=== PATIENT | female | born 1950 ===

== ENCOUNTER 2017-05-07 00:52 | Emergency (ER) | payer MEDICARE, OTHER ==
[2017-05-07 00:52] VITALS: BMI 49.6
--- NOTE | 2017-05-07 01:55 | C.PDOC ---
History Of Present Illness Patient presents to the ED with complaints of abdominal pain and nausea beginning today and persisting all day. Patient notes a history of H. Pylori and denies any fever or vomiting. Time Seen by Provider: 05/07/17 01:54 Chief Complaint (Nursing): Abdominal Pain History Per: Patient History/Exam Limitations: no limitations Onset/Duration Of Symptoms: Hrs Current Symptoms Are (Timing): Still Present Severity: Moderate Pain Scale Rating Of: 4 Location Of Pain/Discomfort: Diffuse Radiation Of Pain To:: None Quality Of Discomfort: "Pain" Associated Symptoms: Nausea. denies: Fever, Chills, Vomiting, Diarrhea Recent travel outside of the [place]: No Abnormal Vaginal Bleeding: No Past Medical History Reviewed: Historical Data, Nursing Documentation, Vital Signs Vital Signs: Last Vital Signs Temp 98.4 F 05/07/17 03:00 Pulse 69 05/07/17 03:00 Resp 20 05/07/17 03:00 BP 179/68 H 05/07/17 03:00 Pulse Ox 100 05/07/17 03:00 - Medical History PMH: Anxiety, Asthma, Back Problems (chronic), Depression, Diabetes, HTN, Hypercholesterolemia, Hyperlipidemia Surgical History: Cholecystectomy Family History: States: Unknown Family Hx - Social History Hx Tobacco Use: No Hx Alcohol Use: No Hx Substance Use: No - Immunization History Hx Tetanus Toxoid Vaccination: No Hx Influenza Vaccination: No Hx Pneumococcal Vaccination: No Review Of Systems Constitutional: Negative for: Fever, Chills Cardiovascular: Negative for: Chest Pain, Palpitations Respiratory: Negative for: Cough, Shortness of Breath Gastrointestinal: Positive for: Nausea, Abdominal Pain. Negative for: Vomiting , Diarrhea Physical Exam - Physical Exam Appears: Non-toxic, No Acute Distress, Other (Patient appears extremely anxious) Skin: Warm, Dry Head: Atraumatic Eye(s): bilateral: Normal Inspection Oral Mucosa: Moist Neck: Supple Chest: Symmetrical, No Deformity Cardiovascular: Rhythm Regular Respiratory: Normal Breath Sounds, No Rales, No Rhonchi, No Wheezing Gastrointestinal/Abdominal: Soft, Tenderness (mild abdominal tenderness ), Distention, No Guarding, No Rebound Extremity: Normal ROM, No Tenderness Neurological/Psych: Oriented x3 ED Course And Treatment - Laboratory Results Result Diagrams: 05/07/17 02:47 05/07/17 02:47 ECG: Interpreted By Me, Viewed By Me ECG Rhythm: Sinus Rhythm (95), Nonspecific Changes Pulse Ox Interpretation: Normal - Radiology CXR: Interpreted by Me, Viewed By Me Reevaluation Time: 06:23 Reassessment Condition: Improved Disposition Counseled Patient/Family Regarding: Studies Performed, Diagnosis, Need For Followup - Disposition Referrals: [facility] [Outside] [facility] [Outside] Disposition: HOME/ ROUTINE Disposition Time: 01:54 Condition: FAIR Prescriptions: Lorazepam [Ativan] 0.5 mg PO Q12H PRN #10 tab PRN Reason: Anxiety Instructions: Abdominal Pain (ED), Anxiety (ED) Print Language: TELUGU - Clinical Impression Clinical Impression: Abdominal pain, Anxiety - Scribe Statement The provider has reviewed the documentation as recorded by the Scribe Rosie Rodrigez All medical record entries made by the Abigailibe were at my direction and personally dictated by me. I have reviewed the chart and agree that the record accurately reflects my personal performance of the history, physical exam, medical decision making, and the department course for this patient. I have also personally directed, reviewed, and agree with the discharge instructions and disposition.
[2017-05-07] MEDS ORDERED: Sodium Chloride 0.9% 1,000 ML IV ONE (02:24)
[2017-05-07] MEDS ORDERED: Sodium Chloride 0.9% 1,000 ML ONE (02:40)
[2017-05-07 02:51] LABS: BASO # 0.1 K/uL (0.0-0.2); BASO % 0.7 % (0.0-2.0); EOS # 0.1 K/uL (0.0-0.7); EOS % 1.5 % (0.0-4.0); HEMOGLOBIN 16.2 g/dL (11.0-16.0); LYMPH # 3.1 K/uL (1.0-4.3); LYMPH % 30.3 % (20.0-40.0); MEAN CELL VOLUME 83.3 fL (81.0-99.0); MEAN CORPUSCULAR HEMOGLOBIN 28.5 pg (27.0-31.0); MEAN CORPUSCULAR HGB CONC 34.2 g/dL (33.0-37.0); MEAN PLATELET VOLUME 8.5 fL (7.2-11.7); MONO # 0.7 K/uL (0.0-0.8); NEUT # 6.1 K/uL (1.8-7.0); NEUT % 60.5 % (50.0-75.0); RBC 5.69 Mil/uL (3.80-5.20); RED CELL DISTRIBUTION WIDTH 13.5 % (11.5-14.5); WHITE BLOOD COUNT 10.1 K/uL (4.8-10.8)
[2017-05-07 02:59] LABS: ALBUMIN 4.1 g/dL (3.5-5.0)
[2017-05-07 03:01] VITALS: RESP 20; O2SAT 100
[2017-05-07 03:01] LABS: INR 1.1; PROTHROMBIN TIME 11.8 SECONDS (9.7-12.2)
[2017-05-07 03:02] LABS: ALB/GLOB RATIO 1.1 (1.0-2.1); ALT/SGPT 55 U/L (9-52); AST/SGOT 45 U/L (14-36); BLOOD UREA NITROGEN 12 mg/dL (7-17); GFR AFRICAN-AMERICAN > 60; GFR NON-AFRICAN AMERICAN > 60; LIPASE 68 U/L (23-300)
[2017-05-07 03:03] LABS: CALCIUM 8.9 mg/dl (8.6-10.4)
[2017-05-07] MEDS ORDERED: Iodixanol 320 MG/ML 100 ML BOTTLE IV ONE (04:54)
--- NOTE | 2017-05-07 06:03 | CT ---
EXAM: CT Abdomen and Pelvis With Intravenous Contrast CLINICAL HISTORY: 66 years old, female; Pain; Abdominal pain; Prior surgery; Surgery type: Colostomy; Patient HX: 12-13-15 TECHNIQUE: Axial computed tomography images of the abdomen and pelvis with intravenous contrast. This CT exam was performed using one or more of the following dose reduction techniques: automated exposure control, adjustment of the mA and/or kV according to patient size, and/or use of iterative reconstruction technique. Coronal and sagittal reformatted images were created and reviewed. CONTRAST: 100 mL of administered intravenously. COMPARISON: CT - ABD PELVIS IV CONTRAST ONLY 12/13/2015 5:33:43 PM FINDINGS: Lower thorax: No acute findings. ABDOMEN: Liver: Mildly enlarged. Fatty infiltration. Gallbladder and bile ducts: Cholecystectomy. No ductal dilation. Pancreas: No ductal dilation. No mass. Spleen: Few too small to characterize lesions. Mild splenomegaly, AP dimension. Adrenals: No mass. Kidneys and ureters: No mass. No hydronephrosis. Stomach and bowel: No definite mural thickening. No obstruction. Appendix: Normal caliber. No inflammation. PELVIS: Bladder: Unremarkable. Reproductive: Hysterectomy. ABDOMEN and PELVIS: Intraperitoneal space: No significant fluid collection. No free air. Bones/joints: Mild degenerative changes of spine. No acute fracture. Soft tissues: Diffuse eventration of anterior abdominal wall. Vasculature: Moderate atherosclerotic disease of aorta. Mild atherosclerotic disease of remaining arteries. No aneurysm. Lymph nodes: No pathologically enlarged lymph nodes. IMPRESSION: 1. No definite acute intraabdominal abnormality. 2. Incidental/non-acute findings are described above.
[2017-05-07 06:06] LABS: SQUAMOUS EPITHIAL < 1 /hpf (0-5); URINE BILIRUBIN NEGATIVE (NEGATIVE); URINE BLOOD NEGATIVE (NEGATIVE); URINE CLARITY Clear (Clear); URINE COLOR Colorless (YELLOW); URINE GLUCOSE (UA) 1+ mg/dL (Normal); URINE LEUKOCYTE ESTERASE NEG Leu/uL (Negative); URINE NITRATE NEGATIVE (NEGATIVE); URINE PROTEIN NEGATIVE (NEGATIVE); URINE UROBILINOGEN NORMAL mg/dL (0.2-1.0)
[2017-05-07 07:16] VITALS: BP 128/71; PULSE 67; TEMP 97.9
--- NOTE | 2017-05-08 21:29 | CARD ---
APPROVED REPORT EKG Measurement Heart [id number] <Conclusion> Normal sinus rhythm Normal ECG
== END 2017-05-07 07:15 | disposition home or self-care (01) ==
LOC: C.ER 00:52
DX: R10.9 Unspecified abdominal pain (principal); F41.9 Anxiety disorder, unspecified
CPT/HCPCS: 74177; 80053; 81001; 83690; 85025; 85610; 85730; 93005; 96361; 96374; 96375; 96376; 99285; C9113; J2270; J2405; J7040; Q9967

== ENCOUNTER 2017-10-18 10:06 | Emergency (ER) | payer MEDICARE, OTHER ==
[2017-10-18 10:07] VITALS: BMI 49.6
[2017-10-18 10:14] VITALS: O2SAT 98
[2017-10-18] MEDS ORDERED: Sodium Chloride 0.9% 1,000 ML IV ONE ×2 (10:55→12:41)
[2017-10-18 11:00] LABS: RBC URINE 1 /hpf (0-3); URINE BACTERIA RARE (<OCC); URINE BILIRUBIN NEGATIVE (NEGATIVE); URINE BLOOD NEGATIVE (NEGATIVE); URINE COLOR Yellow (YELLOW); URINE GLUCOSE (UA) 1+ mg/dL (Normal); URINE KETONE TRACE mg/dL (NEGATIVE); URINE LEUKOCYTE ESTERASE NEG Leu/uL (Negative); URINE PROTEIN NEGATIVE (NEGATIVE); URINE UROBILINOGEN NORMAL mg/dL (0.2-1.0); WBC URINE 3 /hpf (0-5)
[2017-10-18 11:08] LABS: BASO # 0.1 K/uL (0.0-0.2); BASO % 0.9 % (0.0-2.0); EOS # 0.1 K/uL (0.0-0.7); EOS % 0.7 % (0.0-4.0); HEMATOCRIT 47.6 % (34.0-47.0); LYMPH # 2.4 K/uL (1.0-4.3); MEAN CELL VOLUME 83.4 fL (81.0-99.0); MEAN CORPUSCULAR HEMOGLOBIN 28.7 pg (27.0-31.0); MEAN CORPUSCULAR HGB CONC 34.4 g/dL (33.0-37.0); MEAN PLATELET VOLUME 8.8 fL (7.2-11.7); MONO # 0.6 K/uL (0.0-0.8); MONO % 5.9 % (0.0-10.0); NRBC % 0.4 % (0.0-2.0); RED CELL DISTRIBUTION WIDTH 13.1 % (11.5-14.5); WHITE BLOOD COUNT 10.7 K/uL (4.8-10.8)
[2017-10-18] MEDS ORDERED: Sodium Chloride 0.9% 1,000 ML ONE (11:09)
[2017-10-18 11:26] LABS: ALB/GLOB RATIO 0.9 (1.0-2.1); ALKALINE PHOSPHATASE 148 U/L (38-126); ALT/SGPT 38 U/L (9-52); AST/SGOT 43 U/L (14-36); BLOOD UREA NITROGEN 18 mg/dL (7-17); CALCIUM 8.8 mg/dl (8.6-10.4); CARBON DIOXIDE 28 mmol/L (22-30); CHLORIDE 97 mmol/L (98-107); GFR AFRICAN-AMERICAN > 60; GLUCOSE,RANDOM 193 mg/dL (65-105); POTASSIUM 4.8 mmol/L (3.6-5.2); SODIUM 134 mmol/L (132-148); TOTAL PROTEIN 9.1 g/dL (6.3-8.3)
--- NOTE | 2017-10-18 11:38 | C.PDOC ---
History Of Present Illness 67 y/o female, with PMHx of HTN, Hypercholesterolemia, Diabetes, presents to ED c/o abdominal pain, nausea, and vomiting for the last 3 days. Denies diarrhea, fever, or urinary symptoms. Time Seen by Provider: 10/18/17 10:36 Chief Complaint (Nursing): Abdominal Pain History Per: Patient History/Exam Limitations: no limitations Current Symptoms Are (Timing): Still Present Location Of Pain/Discomfort: Diffuse Radiation Of Pain To:: None Quality Of Discomfort: "Pain" Associated Symptoms: Nausea, Vomiting Exacerbating Factors: None Alleviating Factors: None Recent travel outside of the [place]: No Additional History Per: Patient Abnormal Vaginal Bleeding: No Past Medical History Reviewed: Historical Data, Nursing Documentation, Vital Signs Vital Signs: Last Vital Signs Temp 98.1 F 10/18/17 14:07 Pulse 65 10/18/17 14:07 Resp 18 10/18/17 14:07 BP 174/76 H 10/18/17 14:07 Pulse Ox 98 10/18/17 14:07 - Medical History PMH: Anxiety, Asthma, Back Problems (chronic), Depression, Diabetes, Gastritis, HTN, Hypercholesterolemia, Hyperlipidemia Surgical History: Appendectomy, Cholecystectomy Family History: States: Unknown Family Hx - Social History Hx Tobacco Use: No Hx Alcohol Use: No Hx Substance Use: No - Immunization History Hx Tetanus Toxoid Vaccination: No Hx Influenza Vaccination: No Hx Pneumococcal Vaccination: No Review Of Systems Except As Marked, All Systems Reviewed And Found Negative. Constitutional: Negative for: Fever, Chills Gastrointestinal: Positive for: Nausea, Vomiting, Abdominal Pain. Negative for : Diarrhea, Constipation Genitourinary: Negative for: Dysuria, Frequency, Hematuria Musculoskeletal: Negative for: Back Pain Physical Exam - Physical Exam Appears: Non-toxic, No Acute Distress Skin: Normal Color, Warm, Dry Head: Atraumatic, Normacephalic Eye(s): bilateral: Normal Inspection Oral Mucosa: Moist Cardiovascular: Rhythm Regular, No Murmur Respiratory: Normal Breath Sounds, No Rales, No Rhonchi, No Wheezing Gastrointestinal/Abdominal: Soft, Tenderness (epigastric), No Guarding, No Rebound, Other (active vomiting) Back: No CVA Tenderness Extremity: Normal ROM Neurological/Psych: Oriented x3, Normal Speech Gait: Steady ED Course And Treatment - Laboratory Results Result Diagrams: 10/18/17 11:04 10/18/17 11:04 Lab Interpretation: No Acute Changes O2 Sat by Pulse Oximetry: 98 Pulse Ox Interpretation: Normal - CT Scan/US No standard instances Other Rad Studies (CT/US): Read By Radiologist, Radiology Report Reviewed CT/US Interpretation: FINDINGS: CHEST: Lungs: The lungs are well inflated and clear. Cardiovascular: Normal size heart. No pulmonary vascular congestion. Pleura: No pleural fluid. No pneumothorax. Other findings: None. ABDOMEN AND PELVIS: Bowel: The bowel gas pattern is nonspecific. No evidence of mechanical obstruction. Free air: None. Bones: Unremarkable. Other findings: None. IMPRESSION: Nonobstructive bowel-gas pattern. Clear lungs. Progress Note: Blood work, UA ordered and reviewed. Pt was given Zofran, Reglan , and IV fluids. Treated with zofran, maalox and pepcid. On re-evaluation lungs clear, abdomen soft non-tender, feeling better, tolerating PO Reassessment Condition: Improved Disposition Counseled Patient/Family Regarding: Studies Performed, Diagnosis, Need For Followup, Rx Given - Disposition Referrals: [facility] [Outside] [facility] [Outside] [facility] [Outside] Disposition: HOME/ ROUTINE Disposition Time: 14:10 Condition: IMPROVED Additional Instructions: Thank you for letting us take care of you today. The emergency medical care you received today was directed at your acute symptoms. If you were prescribed any medication, please fill it and take as directed. It may take several days for your symptoms to resolve. Return to the Emergency Department if your symptoms worsen, do not improve, or if you have any other problems. Please contact your doctor or call one of the physicians/clinics you have been referred to that are listed on the Patient Visit Information form that is included in your discharge packet. Bring any paperwork you were given at discharge with you along with any medications you are taking to your follow up visit. Our treatment cannot replace ongoing medical care by a primary care provider (PCP) outside of the emergency department. Thank you for allowing the [facility] team to be part of your care today. Follow up with your [facility] doctor or the OB clinic in 3-4 days for outpatient care. Prescriptions: Ondansetron ODT [Zofran ODT] 1 odt PO BID PRN #6 odt PRN Reason: Nausea/Vomiting Instructions: Acute Nausea and Vomiting (ED) Forms: [facility] (Yoruba) Print Language: FILIPINO - POA Present On Arrival: None - Clinical Impression Clinical Impression: Vomiting, Gastritis - PA / CONTACT CENTER ASSISTANT / Resident Statement MD/DO has reviewed & agrees with the documentation as recorded. - Scribe Statement The provider has reviewed the documentation as recorded by the Abigailibdelilah Braden All medical record entries made by the Abigailibdelilah were at my direction and personally dictated by me. I have reviewed the chart and agree that the record accurately reflects my personal performance of the history, physical exam, medical decision making, and the department course for this patient. I have also personally directed, reviewed, and agree with the discharge instructions and disposition.
[2017-10-18] MEDS ORDERED: Alum-Mag Hydrox-Simethicone Susp (30 mL) PO STA (12:41)
[2017-10-18] MEDS ORDERED: Alum-Mag Hydrox-Simethicone Susp (30 mL) ONE (12:52)
--- NOTE | 2017-10-18 13:37 | RAD ---
PROCEDURE: Radiographs of the chest and abdomen (obstructive series) HISTORY: Abdominal pain COMPARISON: No prior. TECHNIQUE: AP radiograph of the chest, with upright and supine radiographs of the abdomen. FINDINGS: CHEST: Lungs: The lungs are well inflated and clear. Cardiovascular: Normal size heart. No pulmonary vascular congestion. Pleura: No pleural fluid. No pneumothorax. Other findings: None. ABDOMEN AND PELVIS: Bowel: The bowel gas pattern is nonspecific. No evidence of mechanical obstruction. Free air: None. Bones: Unremarkable. Other findings: None. IMPRESSION: Nonobstructive bowel-gas pattern. Clear lungs.
[2017-10-18 14:07] VITALS: BP 174/76; PULSE 65; RESP 18; TEMP 98.1
== END 2017-10-18 14:19 | disposition home or self-care (01) ==
LOC: C.ER 10:06
DX: K29.70 Gastritis, unspecified, without bleeding (principal); R11.10 Vomiting, unspecified
CPT/HCPCS: 74022; 80053; 81001; 82948; 83690; 85025; 96361; 96374; 96375; 99285; J2405; J2765; J7040

== ENCOUNTER 2017-12-24 06:35 | Day surgery (SDC) | payer MEDICARE, OTHER ==
[2017-12-24 07:33] VITALS: BMI 43.0
[2017-12-24 07:52] VITALS: O2SAT 100
--- NOTE | 2017-12-24 08:34 | CP.SDSHP ---
Same Day Surgery H & P - History Proposed Procedure: colonoscopy Pre-Op Diagnosis: change in bowels, chronic constipation. screening for colon cancer - Previous Medical/Surgical History Cardiac: Hypertension Endocrine/Metabolic: Diabetes, Obesity Misc: Other (gerd, gastritis) Previous Surgical History: x 3. JOHN PAUL/BSO. Abdominal wall hernia - Allergies Allergies: Allergies Sulfa (Sulfonamide Antibiotics) Allergy (Severe, Verified 12/24/17 07:33) ANGIOEDEMA - Physical Exam Vital Signs: Vital Signs 12/24/17 07:05 Temperature 97.7 F Pulse Rate 73 Respiratory 19 Rate Blood Pressure 137/54 L O2 Sat by Pulse 100 Oximetry Mental Status: Alert & Oriented x3 Neuro: WNL Heart: WNL Lungs: WNL GI: WNL - Impression Impression: screening for colon cancer. change in bowels/constipation Pt. Evaluated Today:Candidate for Anesthesia & Procedure: Yes - Date & Time Date: 12/24/17 Time: 08:34 Short Stay Discharge - Short Stay Discharge Admitting Diagnosis/Reason for Visit: SCREENING Disposition: HOME/ ROUTINE
[2017-12-24] MEDS ORDERED: Propofol 10 mg/ml Inj (20 ML) ONE (08:37)
[2017-12-24] MEDS ORDERED: Lidocaine Hydrochloride 5 ML INJ ONE (08:38)
[2017-12-24 09:17] VITALS: TEMP 97.5
[2017-12-24 12:45] VITALS: BP 127/57; PULSE 58; RESP 10
== END 2017-12-24 10:30 | disposition home or self-care (01) ==
LOC: C.ENDO 06:35
PROVIDERS: ATTEND Internal Medicine Gastroenterology
DX: D12.8 Benign neoplasm of rectum (principal); D12.2 Benign neoplasm of ascending colon; D12.5 Benign neoplasm of sigmoid colon; K57.30 Diverticulosis of large intestine without perforation or abscess without bleeding; K64.1 Second degree hemorrhoids; I10 Essential (primary) hypertension; E66.9 Obesity, unspecified; E11.9 Type 2 diabetes mellitus without complications; Z68.41 Body mass index [BMI] 40.0-44.9, adult
CPT/HCPCS: 45380; 45385; 88305; J2704

== ENCOUNTER 2018-02-17 15:39 | Emergency (ER) | payer MEDICARE, OTHER ==
[2018-02-17 16:01] VITALS: BMI 44.5
[2018-02-17 16:05] VITALS: O2SAT 98
[2018-02-17] MEDS ORDERED: DiphenhydrAMINE 50 mg/ml Inj IVP STA (17:03)
[2018-02-17 17:07] VITALS: TEMP 98.2
[2018-02-17] MEDS ORDERED: DiphenhydrAMINE 50 mg/ml Inj ONE (17:11)
--- NOTE | 2018-02-17 17:15 | C.PDOC ---
History Of Present Illness Patient presents to ED c/o intermittent headache associated with lightheadedness for the past 2 weeks. She has h/o prior headaches, typically takes tylenol for then. However current headache has persisted and is stronger in intensity. She denies facial droop, slurred speech, extremity weakness, sensory changes, chest pain, palpitations, fever, neck pain. She was seen by PMD several days ago, given Rx for Tylenol #3 and told her if no better, to come to ER. Time Seen by Provider: 02/17/18 16:10 Chief Complaint (Nursing): Back Pain History Per: Patient, Family (at bedside ) History/Exam Limitations: no limitations Onset/Duration Of Symptoms: Days (2 WEEKS) Quality Of Discomfort: "Pain" Severity: Moderate Past Medical History Reviewed: Historical Data, Nursing Documentation, Vital Signs Vital Signs: Last Vital Signs Temp 98.2 F 02/17/18 18:25 Pulse 62 02/17/18 18:25 Resp 18 02/17/18 18:25 BP 142/70 02/17/18 18:25 Pulse Ox 99 02/17/18 18:25 - Medical History PMH: Anxiety, Back Problems (chronic), Depression, Diabetes, Gastritis, HTN, Hypercholesterolemia, Hyperlipidemia Surgical History: Appendectomy, Cholecystectomy Family History: States: No Known Family Hx - Social History Hx Tobacco Use: No Hx Alcohol Use: No Hx Substance Use: No - Immunization History Hx Tetanus Toxoid Vaccination: No Hx Influenza Vaccination: No Hx Pneumococcal Vaccination: No Review Of Systems Except As Marked, All Systems Reviewed And Found Negative. Constitutional: Negative for: Fever, Chills Cardiovascular: Negative for: Chest Pain, Palpitations Respiratory: Negative for: Shortness of Breath Gastrointestinal: Negative for: Nausea, Vomiting Genitourinary: Negative for: Dysuria, Hematuria Skin: Negative for: Rash Neurological: Positive for: Headache, Dizziness. Negative for: Weakness, Numbness, Altered Mental Status Physical Exam - Physical Exam Appears: Well, Non-toxic, No Acute Distress Skin: Normal Color, Warm, Dry Head: Atraumatic, Normacephalic Eye(s): bilateral: Normal Inspection, PERRL, EOMI Oral Mucosa: Moist Neck: Normal, Normal ROM Cardiovascular: Rhythm Regular Respiratory: Normal Breath Sounds, No Rales, No Rhonchi, No Wheezing Gastrointestinal/Abdominal: Normal Exam, Bowel Sounds, Soft, No Tenderness Neurological/Psych: Oriented x3, Normal Speech, Normal Cognition, Normal Cranial Nerves, No Cerebellar Signs, Normal Motor, Normal Sensation Gait: Steady ED Course And Treatment - Laboratory Results Result Diagrams: 02/17/18 17:37 02/17/18 17:37 O2 Sat by Pulse Oximetry: 98 (RA) Pulse Ox Interpretation: Normal Progress Note: Blood work, CT head ordered and reviewed. Patient given IV NS bolus, IV reglan and benadryl. Disposition Counseled Patient/Family Regarding: Studies Performed, Diagnosis, Need For Followup, Rx Given - Disposition Referrals: Danna Clements MD [Medical Doctor] - Disposition: HOME/ ROUTINE Disposition Time: 19:15 Condition: STABLE Additional Instructions: FOLLOW UP WITH YOUR DOCTOR IN 1-2 DAYS USE MEDICATION FOR HEADACHE NEEDED RETURN TO EMERGENCY ROOM IF SYMPTOMS WORSEN SEGUIMIENTO CON WALLER MDICO EN 1-2 PARKER USE MEDICAMENTOS PARA GENEVA DE REX SEGN SEA NECESARIO REGRESE AL TAYE DE EMERGENCIA SI LOS SNTOMAS EMPEORAN Prescriptions: Acetaminophen/Butalbital/Caf [Fioricet] 1 tab PO TID PRN #20 tab PRN Reason: Headache Instructions: Low Back Pain (DC), Headache, Adult (DC) Forms: [facility] (Bahraini) Print Language: INDONESIAN - POA Present On Arrival: None - Clinical Impression Clinical Impression: Low back pain, Headache
[2018-02-17] MEDS ORDERED: Sodium Chloride 0.9% 500 ML IV ONE (17:19)
[2018-02-17 17:41] LABS: BASO # 0.1 K/uL (0.0-0.2); BASO % 0.7 % (0.0-2.0); EOS # 0.1 K/uL (0.0-0.7); EOS % 0.9 % (0.0-4.0); LYMPH # 1.9 K/uL (1.0-4.3); LYMPH % 23.1 % (20.0-40.0); MEAN CELL VOLUME 83.6 fL (81.0-99.0); MEAN CORPUSCULAR HGB CONC 34.7 g/dL (33.0-37.0); MEAN PLATELET VOLUME 8.1 fL (7.2-11.7); MONO # 0.6 K/uL (0.0-0.8); MONO % 7.9 % (0.0-10.0); NEUT # 5.4 K/uL (1.8-7.0); NEUT % 67.4 % (50.0-75.0); NRBC % 0.3 % (0.0-2.0); RBC 5.18 Mil/uL (3.80-5.20); RED CELL DISTRIBUTION WIDTH 13.8 % (11.5-14.5)
[2018-02-17 17:53] LABS: ALB/GLOB RATIO 1.1 (1.0-2.1); ALBUMIN 4.1 g/dL (3.5-5.0); ALT/SGPT 17 U/L (9-52); AST/SGOT 20 U/L (14-36); BLOOD UREA NITROGEN 18 mg/dL (7-17); CALCIUM 9.2 mg/dl (8.6-10.4); GFR AFRICAN-AMERICAN > 60; GFR NON-AFRICAN AMERICAN > 60
--- NOTE | 2018-02-17 18:17 | CT ---
PROCEDURE: CT scan brain dated 02/17/2018 HISTORY: Headache and dizziness. COMPARISON: None available. TECHNIQUE: Axial computed tomography images were obtained through the head/brain without intravenous contrast. Radiation dose: Total exam DLP = 775.45 mGy-cm. This CT exam was performed using one or more of the following dose reduction techniques: Automated exposure control, adjustment of the mA and/or kV according to patient size, and/or use of iterative reconstruction technique. FINDINGS: HEMORRHAGE: No acute parenchymal, subarachnoid or extra-axial hemorrhage. BRAIN: No evidence of large acute infarct. No obvious parenchymal nor extra-axial mass or collection seen on this noncontrast study. Suspect minimal chronic periventricular white matter ischemic changes. Mild age-appropriate volume loss. VENTRICLES: The no obstructive hydrocephalus. CALVARIUM: There are no acute calvarial fracture seen. PARANASAL SINUSES: Unremarkable as visualized. No significant inflammatory changes. MASTOID AIR CELLS: Unremarkable as visualized. No inflammatory changes. OTHER FINDINGS: Changes of bilateral cataract surgery present. IMPRESSION: No acute intracranial hemorrhage. Suspect minimal chronic periventricular white matter ischemic changes. Suspect mild age-appropriate volume loss.
[2018-02-17] MEDS ORDERED: Apap-Butalbital-Caffeine 325-50-40mg Tab PO STA (18:46)
[2018-02-17] MEDS ORDERED: Apap-Butalbital-Caffeine 325-50-40mg Tab ONE (18:58)
[2018-02-17 22:40] VITALS: BP 142/70; PULSE 62; RESP 18
== END 2018-02-17 19:08 | disposition home or self-care (01) ==
LOC: C.ER 15:39
DX: R51 Headache (principal); M54.5 Low back pain
CPT/HCPCS: 70450; 80053; 82948; 85025; 96361; 96374; 96375; 99284; J1200; J1885; J2765; J7040

== ENCOUNTER 2018-02-24 14:37 | Emergency (ER) | payer MEDICARE, OTHER ==
[2018-02-24 14:37] VITALS: BMI 44.5
[2018-02-24 14:44] VITALS: O2SAT 97
[2018-02-24] MEDS ORDERED: DiphenhydrAMINE 50 mg/ml Inj IVP STA (15:34)
[2018-02-24 15:44] LABS: BASO % 0.8 % (0.0-2.0); EOS % 0.5 % (0.0-4.0); HEMOGLOBIN 16.1 g/dL (11.0-16.0); LYMPH # 1.6 K/uL (1.0-4.3); MEAN CELL VOLUME 83.4 fL (81.0-99.0); MEAN CORPUSCULAR HEMOGLOBIN 29.5 pg (27.0-31.0); MEAN CORPUSCULAR HGB CONC 35.4 g/dL (33.0-37.0); MEAN PLATELET VOLUME 7.8 fL (7.2-11.7); MONO # 0.5 K/uL (0.0-0.8); MONO % 7.7 % (0.0-10.0); NEUT # 3.9 K/uL (1.8-7.0); NRBC % 0.6 % (0.0-2.0); RBC 5.46 Mil/uL (3.80-5.20); RED CELL DISTRIBUTION WIDTH 14.1 % (11.5-14.5)
[2018-02-24] MEDS ORDERED: DiphenhydrAMINE 50 mg/ml Inj ONE (15:49)
[2018-02-24 15:56] LABS: ALB/GLOB RATIO 1.1 (1.0-2.1); ALBUMIN 4.5 g/dL (3.5-5.0); ALT/SGPT 44 U/L (9-52); AST/SGOT 47 U/L (14-36); BLOOD UREA NITROGEN 13 mg/dL (7-17); CALCIUM 9.6 mg/dl (8.6-10.4); GFR AFRICAN-AMERICAN > 60; GFR NON-AFRICAN AMERICAN > 60; LIPASE 73 U/L (23-300)
[2018-02-24 16:07] LABS: B-TYPE NATRIURETIC PEPTIDE 112 pg/mL (0-900)
--- NOTE | 2018-02-24 16:17 | RAD ---
HISTORY: COMPARISON: 10/18/2017. TECHNIQUE: Chest PA and lateral FINDINGS: LINES AND TUBES: None. LUNG AND PLEURA: The lungs are well inflated and clear. HEART AND MEDIASTINUM: The heart is not enlarged. The hilar and mediastinal contours are within normal limits. SKELETAL STRUCTURES: The bony structures are within normal limits for the patient's age. VISUALIZED UPPER ABDOMEN: Normal. OTHER FINDINGS: None. IMPRESSION: No active pulmonary disease.
--- NOTE | 2018-02-24 16:25 | C.PDOC ---
History Of Present Illness 67 y/o female presents to the ER complaining of right sided upper back pain and headache to the right occipital region. Patient states that she was seen in [facility] ER 1 week ago for a headache and she was discharged. She did not follow up with her PMD as instructed. She is also complaining of abdominal discomfort similar to her history of gastritis. Time Seen by Provider: 02/24/18 15:16 Chief Complaint (Nursing): Headache History Per: Patient History/Exam Limitations: no limitations Onset/Duration Of Symptoms: Days Current Symptoms Are (Timing): Still Present Severity: Moderate Reports Recently: Seen In ED Past Medical History Reviewed: Historical Data, Nursing Documentation, Vital Signs Vital Signs: Last Vital Signs Temp 97.4 F L 02/24/18 14:40 Pulse 87 02/24/18 14:40 Resp 18 02/24/18 14:40 BP 144/84 02/24/18 14:40 Pulse Ox 97 02/24/18 18:54 - Medical History PMH: Anxiety, Back Problems (chronic), Depression, Diabetes, Gastritis, HTN, Hypercholesterolemia, Hyperlipidemia Denies: Anemia, Chronic Kidney Disease Surgical History: Appendectomy, Cholecystectomy Denies: Pacemaker Family History: States: No Known Family Hx - Social History Hx Tobacco Use: No Hx Alcohol Use: No Hx Substance Use: No - Immunization History Hx Tetanus Toxoid Vaccination: No Hx Influenza Vaccination: No Hx Pneumococcal Vaccination: No Review Of Systems Except As Marked, All Systems Reviewed And Found Negative. Gastrointestinal: Positive for: Abdominal Pain Musculoskeletal: Positive for: Back Pain Neurological: Positive for: Headache Physical Exam - Physical Exam Appears: Non-toxic, No Acute Distress Skin: Normal Color, Warm Head: Atraumatic, Normacephalic Eye(s): bilateral: Normal Inspection Nose: Normal Oral Mucosa: Moist Neck: Supple Chest: Symmetrical Cardiovascular: Rhythm Regular Respiratory: Normal Breath Sounds, No Rales, No Rhonchi, No Wheezing Gastrointestinal/Abdominal: Normal Exam, Soft, No Tenderness Back: Other (tenderness to right parathoracic region, no rash noted to region) Neurological/Psych: Oriented x3, Normal Speech ED Course And Treatment - Laboratory Results Result Diagrams: 02/24/18 15:40 02/24/18 15:40 O2 Sat by Pulse Oximetry: 97 (RA) Pulse Ox Interpretation: Normal - Radiology CXR: Interpreted by Me, Viewed By Me CXR Interpretation: Yes: No Acute Disease - CT Scan/US CT-Head Other Rad Studies (CT/US): Read By Radiologist, Radiology Report Reviewed CT/US Interpretation: PROCEDURE: CT HEAD WITHOUT CONTRAST. HISTORY: Headache. COMPARISON: 02/17/2018. TECHNIQUE: Axial computed tomography images were obtained through the head/brain without intravenous contrast. Radiation dose: Total exam DLP = 1060.58 mGy-cm. This CT exam was performed using one or more of the following dose reduction techniques: Automated exposure control, adjustment of the mA and/or kV according to patient size, and/ or use of iterative reconstruction technique. FINDINGS: HEMORRHAGE: No intracranial hemorrhage. BRAIN: Pacheco-white matter differentiation is preserved. There is no mass, mass effect or abnormal extra-axial fluid collection. There is no territorial infarction. VENTRICLES: There is mild age -related global parenchymal volume loss and proportionate enlargement of the ventricles and cortical sulci. CALVARIUM: The skull base and calvarium are normal. PARANASAL SINUSES: There is mild mucosal thickening in the right ethmoid air cells. The remaining included paranasal sinuses are predominantly clear. MASTOID AIR CELLS: Predominantly clear. OTHER FINDINGS: None. IMPRESSION: No acute intracranial abnormality. No significant interval change. Medical Decision Making Medical Decision Making: Assessment: Headache, Back Pain, Abdominal Discomfort Plan: --Labs --CT-Head --CXR --Benadryl IV ekg - nsr at rate of 55 bpm with nrm intervals, nrm axis, lvh, no st or twave abn. patient resting comfortably, states improvement, will discharge patient home to follow up with pmd in 2 days. Disposition Counseled Patient/Family Regarding: Studies Performed, Diagnosis, Need For Followup, Rx Given - Disposition Referrals: Danna Clements MD [Medical Doctor] - Disposition: HOME/ ROUTINE Disposition Time: 18:44 Condition: IMPROVED Additional Instructions: follow up with your doctor in 2 days call to make an appointment take medications as needed for pain return to ER if symptoms worsens or progress Prescriptions: Famotidine [Pepcid] 20 mg PO BID #20 tab Naproxen [Naprosyn] 500 mg PO BID PRN #16 tab PRN Reason: Pain, Moderate (4-7) traMADol [Ultram] 50 mg PO TID PRN #12 tab PRN Reason: Pain, Moderate (4-7) Instructions: Tension Headache, Dyspepsia, Upper Back Pain (DC) Forms: Gen Discharge Inst Cymro, [facility] (Cymro) Print Language: HONG KONGER - Clinical Impression Clinical Impression: Headache, Thoracic back pain, Gastritis - Scribe Statement The provider has reviewed the documentation as recorded by the Abigailibe Yolette Valentin Provider Attestation: All medical record entries made by the Abigailibe were at my direction and personally dictated by me. I have reviewed the chart and agree that the record accurately reflects my personal performance of the history, physical exam, medical decision making, and the department course for this patient. I have also personally directed, reviewed, and agree with the discharge instructions and disposition.
--- NOTE | 2018-02-24 17:23 | CT ---
PROCEDURE: CT HEAD WITHOUT CONTRAST. HISTORY: Headache COMPARISON: 02/17/2018. TECHNIQUE: Axial computed tomography images were obtained through the head/brain without intravenous contrast. Radiation dose: Total exam DLP = 1060.58 mGy-cm. This CT exam was performed using one or more of the following dose reduction techniques: Automated exposure control, adjustment of the mA and/or kV according to patient size, and/or use of iterative reconstruction technique. FINDINGS: HEMORRHAGE: No intracranial hemorrhage. BRAIN: Pacheco-white matter differentiation is preserved. There is no mass, mass effect or abnormal extra-axial fluid collection. There is no territorial infarction. VENTRICLES: There is mild age-related global parenchymal volume loss and proportionate enlargement of the ventricles and cortical sulci. CALVARIUM: The skull base and calvarium are normal. PARANASAL SINUSES: There is mild mucosal thickening in the right ethmoid air cells. The remaining included paranasal sinuses are predominantly clear. MASTOID AIR CELLS: Predominantly clear. OTHER FINDINGS: None. IMPRESSION: No acute intracranial abnormality. No significant interval change.
[2018-02-24] MEDS ORDERED: Oxycodone/Acetaminophen 5/325 mg Tab PO STA (18:00)
[2018-02-24] MEDS ORDERED: Oxycodone/Acetaminophen 5/325 mg Tab ONE (18:09)
[2018-02-24 19:00] VITALS: BP 121/77; PULSE 64; RESP 20; TEMP 98.5
--- NOTE | 2018-02-25 21:46 | CARD ---
APPROVED REPORT EKG Measurement Heart [id number] <Conclusion> Sinus bradycardia Minimal voltage criteria for LVH, may be normal variant Borderline ECG
== END 2018-02-24 19:33 | disposition home or self-care (01) ==
LOC: C.ER 14:37
DX: K29.70 Gastritis, unspecified, without bleeding (principal); M54.6 Pain in thoracic spine; R51 Headache; E11.9 Type 2 diabetes mellitus without complications; E78.00 Pure hypercholesterolemia, unspecified; I10 Essential (primary) hypertension
CPT/HCPCS: 70450; 71046; 80053; 82550; 82948; 83690; 83880; 84484; 85025; 93005; 96372; 96374; 96375; 99285; C9113; J1885; J2405; J3030

== ENCOUNTER 2018-04-06 15:21 | Emergency (ER) | payer MEDICARE, OTHER ==
[2018-04-06 15:32] VITALS: BMI 39.8
[2018-04-06 16:18] LABS: BASO # 0.1 K/uL (0.0-0.2); BASO % 1.3 % (0.0-2.0); EOS # 0.4 K/uL (0.0-0.7); EOS % 6.1 % (0.0-4.0); HEMOGLOBIN 13.9 g/dL (11.0-16.0); LYMPH # 1.4 K/uL (1.0-4.3); LYMPH % 22.3 % (20.0-40.0); MEAN CELL VOLUME 84.7 fL (81.0-99.0); MEAN CORPUSCULAR HEMOGLOBIN 30.2 pg (27.0-31.0); MEAN CORPUSCULAR HGB CONC 35.6 g/dL (33.0-37.0); MEAN PLATELET VOLUME 9.2 fL (7.2-11.7); MONO # 0.5 K/uL (0.0-0.8); MONO % 8.4 % (0.0-10.0); NEUT % 61.9 % (50.0-75.0); NRBC % 0.1 % (0.0-2.0); RBC 4.6 Mil/uL (3.80-5.20); RED CELL DISTRIBUTION WIDTH 13.8 % (11.5-14.5); WHITE BLOOD COUNT 6.5 K/uL (4.8-10.8)
[2018-04-06 16:29] LABS: ALB/GLOB RATIO 1.1 (1.0-2.1); ALBUMIN 3.8 g/dL (3.5-5.0); ALT/SGPT 26 U/L (9-52); AST/SGOT 22 U/L (14-36); BLOOD UREA NITROGEN 8 mg/dL (7-17); CALCIUM 8.6 mg/dl (8.6-10.4); GFR AFRICAN-AMERICAN > 60; GFR NON-AFRICAN AMERICAN > 60; LIPASE 37 U/L (23-300)
[2018-04-06] MEDS ORDERED: Iodixanol 320 MG/ML 100 ML BOTTLE IV ONE (16:43)
[2018-04-06 16:56] LABS: SQUAMOUS EPITHIAL 1 /hpf (0-5); URINE BILIRUBIN NEGATIVE (NEGATIVE); URINE BLOOD NEGATIVE (NEGATIVE); URINE CLARITY Clear (Clear); URINE COLOR Yellow (YELLOW); URINE GLUCOSE (UA) NORMAL (Normal); URINE LEUKOCYTE ESTERASE NEG Leu/uL (Negative); URINE PROTEIN NEGATIVE (NEGATIVE)
--- NOTE | 2018-04-06 17:23 | C.PDOC ---
History Of Present Illness 67 year old female, with PMHx of gastritis, presents to ED for evaluation of epigastric abdominal pain for a "long time". Notes that she had hernia repair surgery 3 weeks ago at [facility] [place]. Denies n/v/d, blood in stool/urine, or fever. Chief Complaint (Nursing): Chest Pain History Per: Patient History/Exam Limitations: no limitations Onset/Duration Of Symptoms: Days Current Symptoms Are (Timing): Still Present Quality: "Pain" Associated Symptoms: denies: Nausea, Dyspnea, Diaphoresis, Syncope Modifying Factors: None Exacerbating Factors: None Alleviating Factors: None Past Medical History Reviewed: Historical Data, Nursing Documentation, Vital Signs Vital Signs: Last Vital Signs Temp 98.6 F 04/06/18 18:15 Pulse 76 04/06/18 18:15 Resp 16 04/06/18 18:15 BP 137/79 04/06/18 18:15 Pulse Ox 99 04/06/18 18:15 - Medical History PMH: Anxiety, Back Problems (chronic), Depression, Diabetes, Gastritis, HTN, Hypercholesterolemia, Hyperlipidemia Denies: Anemia, Chronic Kidney Disease Surgical History: Appendectomy, Cholecystectomy Denies: Pacemaker Family History: States: Unknown Family Hx - Social History Hx Tobacco Use: No Hx Alcohol Use: No Hx Substance Use: No - Immunization History Hx Tetanus Toxoid Vaccination: No Hx Influenza Vaccination: No Hx Pneumococcal Vaccination: No Review Of Systems Except As Marked, All Systems Reviewed And Found Negative. Constitutional: Negative for: Fever, Chills Gastrointestinal: Positive for: Abdominal Pain. Negative for: Nausea, Vomiting , Diarrhea, Constipation Genitourinary: Negative for: Dysuria, Frequency, Hematuria Musculoskeletal: Negative for: Back Pain Physical Exam - Physical Exam Appears: Non-toxic, No Acute Distress Skin: Normal Color, Warm, Dry Head: Atraumatic, Normacephalic Eye(s): bilateral: Normal Inspection Oral Mucosa: Moist Cardiovascular: Rhythm Regular Respiratory: Normal Breath Sounds, No Rales, No Rhonchi, No Wheezing Gastrointestinal/Abdominal: Bowel Sounds, Soft, No Tenderness, No Guarding, No Rebound, Other (well healing midline surgical scar with surgical carla in place) Back: No CVA Tenderness Extremity: Normal ROM Neurological/Psych: Oriented x3, Normal Speech ED Course And Treatment - Laboratory Results Result Diagrams: 04/06/18 16:13 04/06/18 16:13 O2 Sat by Pulse Oximetry: 98 Pulse Ox Interpretation: Normal Medical Decision Making Medical Decision Making: Blood work, UA, Abd & Pelvis CT, EKG was ordered and reviewed. Pt was given , Maalox, and Protonix. 7pm: Signed out patient to Dr. Berg, pending surgical consult. resident programs assistant notified. Disposition - Disposition Disposition Time: 19:00 Condition: UNKNOWN Forms: [facility] (Pashto) - Clinical Impression Clinical Impression: Abdominal pain - Scribe Statement The provider has reviewed the documentation as recorded by the Scribe Eva Braden All medical record entries made by the Scribe were at my direction and personally dictated by me. I have reviewed the chart and agree that the record accurately reflects my personal performance of the history, physical exam, medical decision making, and the department course for this patient. I have also personally directed, reviewed, and agree with the discharge instructions and disposition.
[2018-04-06] MEDS ORDERED: Aluminum Hydroxide/Magnesium Hydroxide Susp (30 mL) PO STA (17:33)
[2018-04-06] MEDS ORDERED: Belladonna-Phenobarbital PO STA (17:33)
[2018-04-06] MEDS ORDERED: Aluminum Hydroxide/Magnesium Hydroxide Susp (30 mL) ONE (17:54)
[2018-04-06] MEDS ORDERED: Belladonna-Phenobarbital ONE (17:54)
[2018-04-06 19:42] VITALS: BP 136/80; PULSE 72; RESP 18; TEMP 98.8; O2SAT 100
--- NOTE | 2018-04-07 08:41 | CT ---
PROCEDURE: CT Abdomen and Pelvis with intravenous contrast HISTORY: Diffuse abdominal pain. History of recent hernia repair COMPARISON: None. TECHNIQUE: Multiple contiguous axial images were performed through the abdomen and pelvis with the use of intravenous contrast. Subsequently, sagittal and coronal reformatted images were obtained. Contrast dose: [address] exam was performed using one or more of the following dose reduction techniques: Automated exposure control, adjustment of the mA and/or kV according to patient size, and/or use of iterative reconstruction technique. FINDINGS: LOWER THORAX: Dependent atelectasis. Small pleural effusions. Cardiomegaly with coronary and valvular calcifications. LIVER: Hepatomegaly with fatty infiltration of the liver. GALLBLADDER AND BILE DUCTS: Prior cholecystectomy. PANCREAS: Unremarkable. No gross lesion or ductal dilatation. SPLEEN: Splenomegaly. Stable too small to characterize splenic hypodensity. ADRENALS: 1 centimeter stable hypodense right adrenal nodule, indeterminate. KIDNEYS AND URETERS: Unremarkable. No hydronephrosis. No solid mass. VASCULATURE: Extensive atheromatous changes of the aorta. BOWEL: Unremarkable. No obstruction. No gross mural thickening. Diverticulosis. APPENDIX: Not well visualized. PERITONEUM: Trace amount of free pelvic fluid. LYMPH NODES: Shotty reactive lymph nodes within the abdominal mesentery. BLADDER: Nondistended urinary bladder. REPRODUCTIVE: Prior hysterectomy. BONES: Degenerative changes in the spine. OTHER FINDINGS: Interval ventral hernia repair. Large rim enhancing lenticular 11 x 2 x 18 centimeter extraperitoneal fluid collection just anterior to the mesh. Acute adjacent rim enhancing fluid collections in the deep soft tissues of the abdominal wall measuring 7.5 x 2 centimeter superiorly and 6.5 x 2.5 centimeters inferiorly. These are deep to the subcutaneous surgical clips. Mesh extends to the right lateral pelvis. Regional induration of the mesenteric along the aspect of the mesh. IMPRESSION: Large rim enhancing fluid collection seen in the deep intra abdominal soft tissues and extraperitoneum associated with the mesh. Sterility of these fluid collections cannot be determined on this examination. Adjacent inflammation of the mesentery. Interval ventral hernia repair. Hepatic splenomegaly. Correlate with LFTs and risk factors for cirrhosis. These findings were preliminarily reported at 6:10 p.m. on 04/06/[address] Shadia Ruiz from [facility] [employer].
--- NOTE | 2018-04-07 23:09 | CARD ---
APPROVED REPORT EKG Measurement Heart [id number] CT 176P47 [id number] <Conclusion> Normal sinus rhythm Voltage criteria for left ventricular hypertrophy Abnormal ECG
== END 2018-04-06 19:45 | disposition home or self-care (01) ==
LOC: C.ER 15:21
DX: R10.13 Epigastric pain (principal)
CPT/HCPCS: 74177; 80053; 81001; 83690; 85025; 87086; 93005; 96374; 96375; 99285; C9113; J2765; Q9967

== ENCOUNTER 2018-05-03 12:19 | Inpatient (IN) | payer MEDICARE, OTHER ==
[2018-05-03 12:19] VITALS: BMI 39.8
[2018-05-03] MEDS ORDERED: Sodium Chloride 0.9% 1,000 ML IV ONE (13:29)
[2018-05-03] MEDS ORDERED: Iohexol 240 (50 ml) PO STA (13:29)
--- NOTE | 2018-05-03 13:49 | C.PDOC ---
History Of Present Illness 67-year-old female, presents to the emergency department with complaints of abdominal pain. Patient returns for evaluation of epigastric pain described as a burning sensation for the past few months. Associated symptoms includes decreased appetite, patient admits to similar symptoms in the past and she was evaluated here and [facility] [place]. States she is taking "stomach meds" with no improvement , Last endo/colonoscopy was three months ago which were "normal." Time Seen by Provider: 05/03/18 12:30 Chief Complaint (Nursing): Abdominal Pain History Per: Patient History/Exam Limitations: no limitations Past Medical History Reviewed: Historical Data, Nursing Documentation, Vital Signs Vital Signs: Last Vital Signs Temp 98.4 F 05/06/18 23:35 Pulse 70 05/07/18 04:12 Resp 20 05/06/18 23:35 BP 149/80 05/06/18 23:35 Pulse Ox 98 05/06/18 23:35 - Medical History PMH: Anxiety, Back Problems (chronic), Depression, Diabetes, Gastritis, HTN, Hypercholesterolemia, Hyperlipidemia Surgical History: Appendectomy, Cholecystectomy Family History: States: Unknown Family Hx - Social History Hx Tobacco Use: No Hx Alcohol Use: No Hx Substance Use: No - Immunization History Hx Tetanus Toxoid Vaccination: No Hx Influenza Vaccination: No Hx Pneumococcal Vaccination: No Review Of Systems Constitutional: Positive for: Other (decreased appetite). Negative for: Fever, Chills Cardiovascular: Negative for: Chest Pain, Palpitations Respiratory: Negative for: Shortness of Breath Gastrointestinal: Positive for: Abdominal Pain. Negative for: Nausea, Vomiting Musculoskeletal: Negative for: Back Pain Neurological: Negative for: Weakness, Numbness, Headache, Dizziness Physical Exam - Physical Exam Appears: Well, Non-toxic, No Acute Distress Skin: Normal Color, Warm, Dry, No Rash Head: Atraumatic, Normacephalic Eye(s): bilateral: Normal Inspection Nose: Normal Oral Mucosa: Moist Lips: Normal Appearing Neck: Normal ROM Chest: Symmetrical Cardiovascular: Rhythm Regular, No Murmur Respiratory: Normal Breath Sounds, No Accessory Muscle Use Gastrointestinal/Abdominal: Soft, Tenderness (Epigastric), No Guarding, No Rebound Extremity: Normal ROM, No Deformity, No Swelling Neurological/Psych: Oriented x3, Normal Speech ED Course And Treatment - Laboratory Results Result Diagrams: 05/06/18 08:14 05/06/18 08:14 Lab Interpretation: Abnormal ECG: Interpreted By Me, Viewed By Me ECG Rhythm: Sinus Rhythm Interpretation Of ECG: SR@67/min, LAD, T wave inversion in III, prolong QT, no acute ST-T changes. O2 Sat by Pulse Oximetry: 99 (RA) Pulse Ox Interpretation: Normal - CT Scan/US CT abd/pelvis Other Rad Studies (CT/US): Radiology Report Reviewed CT/US Interpretation: EXAM: CT Abdomen and Pelvis With Intravenous Contrast. EXAM DATE/TIME: 05/03/2018 1:30 PM. CLINICAL HISTORY: 67 years old, female; Pain; Abdominal pain; Generalized; Prior surgery; Surgery date: 6+ months;. Surgery type: Hernia surg; Additional info: Abd pain. TECHNIQUE: Axial computed tomography images of the abdomen and pelvis with intravenous contrast. All CT. scans at this facility use at least one of these dose optimization techniques: automated exposure. control; mA and/or kV adjustment per patient size (includes targeted exams where dose is matched to. clinical indication); or iterative reconstruction. Coronal and sagittal reformatted images were created and reviewed. COMPARISON: CT - ABD PELVIS IV CONTRAST ONLY 2018-04-06 16:52. FINDINGS: Lower thorax: Heart size is normal. There are atelectatic changes at the lung bases left greater than. right. There is fatty pleural thickening bilaterally. ABDOMEN: Liver: The liver is enlarged. There is fatty infiltration liver. Gallbladder and bile ducts: Gallbladder is not visualized.There is mild prominence of the common. duct. Pancreas: Pancreas is mildly atrophic. Spleen: Spleen is enlarged. Hypodense splenic lesions are unchanged. Adrenals: There is an 11 mm right adrenal nodule too small to accurately characterize, unchanged. Left adrenal is unremarkable. Kidneys and ureters: unremarkable. Stomach and bowel: Stomach is almost empty. Rotation is normal. There is mild duodenal and. proximal jejunal wall and fold prominence. The There is no small bowel obstruction. There is contrast. throughout the small bowel. Terminal ileum is unremarkable. Appendix is not visualized.There is no. pericecal inflammation.Colon is incompletely distended which limits evaluation. There is scattered. diverticulosis. PELVIS: Appendix: See stomach and bowel. Bladder: unremarkable. Reproductive: Uterus is absent. There are no adnexal masses. ABDOMEN and PELVIS: Intraperitoneal space: There is no free air or free fluid. Bones/joints: Bony structures are osteopenic with degenerative change. Soft tissues: There are postsurgical changes of recent hernia repair in the abdominal wall. There is. continued edema and inflammation. Fluid collection seen on the prior study has almost completely. resolved. Residual collection slightly to the right of midline measures approximately 1.2 x 1.4 x 9 cm. Vasculature: There are vascular calcifications. Lymph nodes: There is shotty adenopathy. IMPRESSION: Resolving inflammation in the abdominal wall from recent hernia repair, residual 1.2 x. 1.4 x 9 cm collection in the right abdominal wall; continued hepatosplenomegaly and fatty liver, no. acute solid visceral abnormality; possible enteritis, no obstruction Progress Note: Pt was OBS in ED for 3.5 hours and remained unchanged. Blood work review and appears abnormal. Pt was given PO Potassium, was unable tolerate PO c/o epigastric pain/burning, acute GERD, failed outpt tx. GIven pt 's PMHx pt will benefit for admission. Case discussed wikailyn Morel and admission arranged. Disposition - Disposition Disposition: HOSPITALIZED Disposition Time: 17:40 Condition: STABLE - Clinical Impression Clinical Impression: Acute hypokalemia, EKG abnormalities, Abdominal pain, Dehydration, UTI ( urinary tract infection) - Scribe Statement The provider has reviewed the documentation as recorded by the Scribe (Koyr Jim) All medical record entries made by the Scribe were at my direction and personally dictated by me. I have reviewed the chart and agree that the record accurately reflects my personal performance of the history, physical exam, medical decision making, and the department course for this patient. I have also personally directed, reviewed, and agree with the discharge instructions and disposition.
[2018-05-03] MEDS ORDERED: Sodium Chloride 0.9% 1,000 ML ONE (13:54)
[2018-05-03 13:57] LABS: SQUAMOUS EPITHIAL 1 /hpf (0-5); URINE BACTERIA RARE (<OCC); URINE BILIRUBIN NEGATIVE (NEGATIVE); URINE BLOOD 1+ (NEGATIVE); URINE CLARITY Hazy (Clear); URINE COLOR Yellow (YELLOW); URINE GLUCOSE (UA) NORMAL (Normal); URINE LEUKOCYTE ESTERASE 3+ Leu/uL (Negative); URINE PROTEIN NEGATIVE (NEGATIVE); URINE UROBILINOGEN NORMAL mg/dL (0.2-1.0)
[2018-05-03 14:22] LABS: BASO # 0.2 K/uL (0.0-0.2); BASO % 1.5 % (0.0-2.0); EOS # 0.2 K/uL (0.0-0.7); EOS % 1.7 % (0.0-4.0); HEMOGLOBIN 13.5 g/dL (11.0-16.0); LYMPH # 1.3 K/uL (1.0-4.3); LYMPH % 11.1 % (20.0-40.0); MEAN CELL VOLUME 80.4 fL (81.0-99.0); MEAN CORPUSCULAR HEMOGLOBIN 28.6 pg (27.0-31.0); MEAN CORPUSCULAR HGB CONC 35.5 g/dL (33.0-37.0); MEAN PLATELET VOLUME 9.5 fL (7.2-11.7); MONO # 0.9 K/uL (0.0-0.8); MONO % 7.2 % (0.0-10.0); NEUT # 9.5 K/uL (1.8-7.0); NEUT % 78.5 % (50.0-75.0); RBC 4.74 Mil/uL (3.80-5.20); WHITE BLOOD COUNT 12.1 K/uL (4.8-10.8)
[2018-05-03 14:35] LABS: INR 1.1; PROTHROMBIN TIME 12.4 SECONDS (9.7-12.2)
[2018-05-03] MEDS ORDERED: Iohexol 240 (50 ml) ONE (14:43)
[2018-05-03 15:00] LABS: ALB/GLOB RATIO 1.1 (1.0-2.1); ALBUMIN 4.1 g/dL (3.5-5.0); CALCIUM 9.2 mg/dl (8.6-10.4)
[2018-05-03 15:07] LABS: TROPONIN I 0.013 ng/mL (0.00-0.120)
[2018-05-03] MEDS ORDERED: Iodixanol 320 mg/ml 150 ml Bottle IV ONE (15:08)
--- NOTE | 2018-05-03 17:37 | CT ---
EXAM: CT Abdomen and Pelvis With Intravenous Contrast EXAM DATE/TIME: 05/03/2018 1:30 PM CLINICAL HISTORY: 67 years old, female; Pain; Abdominal pain; Generalized; Prior surgery; Surgery date: 6+ months; Surgery type: Hernia surg; Additional info: Abd pain TECHNIQUE: Axial computed tomography images of the abdomen and pelvis with intravenous contrast. All CT scans at this facility use at least one of these dose optimization techniques: automated exposure control; mA and/or kV adjustment per patient size (includes targeted exams where dose is matched to clinical indication); or iterative reconstruction. Coronal and sagittal reformatted images were created and reviewed. COMPARISON: CT - ABD PELVIS IV CONTRAST ONLY 2018-04-06 16:52 FINDINGS: Lower thorax: Heart size is normal. There are atelectatic changes at the lung bases left greater than right. There is fatty pleural thickening bilaterally. ABDOMEN: Liver: The liver is enlarged. There is fatty infiltration liver. Gallbladder and bile ducts: Gallbladder is not visualized.There is mild prominence of the common duct. Pancreas: Pancreas is mildly atrophic. Spleen: Spleen is enlarged. Hypodense splenic lesions are unchanged. Adrenals: There is an 11 mm right adrenal nodule too small to accurately characterize, unchanged. Left adrenal is unremarkable. Kidneys and ureters: unremarkable Stomach and bowel: Stomach is almost empty. Rotation is normal. There is mild duodenal and proximal jejunal wall and fold prominence. The There is no small bowel obstruction. There is contrast throughout the small bowel. Terminal ileum is unremarkable. Appendix is not visualized.There is no pericecal inflammation.Colon is incompletely distended which limits evaluation. There is scattered diverticulosis PELVIS: Appendix: See stomach and bowel Bladder: unremarkable Reproductive: Uterus is absent. There are no adnexal masses. ABDOMEN and PELVIS: Intraperitoneal space: There is no free air or free fluid. Bones/joints: Bony structures are osteopenic with degenerative change. Soft tissues: There are postsurgical changes of recent hernia repair in the abdominal wall. There is continued edema and inflammation. Fluid collection seen on the prior study has almost completely resolved. Residual collection slightly to the right of midline measures approximately 1.2 x 1.4 x 9 cm. Vasculature: There are vascular calcifications. Lymph nodes: There is shotty adenopathy. IMPRESSION: Resolving inflammation in the abdominal wall from recent hernia repair, residual 1.2 x 1.4 x 9 cm collection in the right abdominal wall; continued hepatosplenomegaly and fatty liver, no acute solid visceral abnormality; possible enteritis, no obstruction Additional nonemergent findings as described above.
[2018-05-03] MEDS ORDERED: Potassium Chloride 20 mEq ER Tab PO STA (17:42)
[2018-05-03] MEDS ORDERED: Potassium Chloride 20 mEq ER Tab PO ONE (17:48)
[2018-05-03] MEDS ORDERED: Potassium Chloride 20 mEq 100 ML ONE (17:48)
[2018-05-03] MEDS ORDERED: Apap-Butalbital-Caffeine 325-50-40mg Tab PO PRN (20:19)
[2018-05-04 06:59] LABS: BASO # 0.2 K/uL (0.0-0.2); BASO % 2.4 % (0.0-2.0); EOS # 0.2 K/uL (0.0-0.7); EOS % 2.5 % (0.0-4.0); LYMPH # 1.4 K/uL (1.0-4.3); MEAN CELL VOLUME 81.4 fL (81.0-99.0); MEAN CORPUSCULAR HEMOGLOBIN 28.7 pg (27.0-31.0); MEAN CORPUSCULAR HGB CONC 35.2 g/dL (33.0-37.0); MEAN PLATELET VOLUME 9.3 fL (7.2-11.7); MONO # 0.7 K/uL (0.0-0.8); MONO % 9.6 % (0.0-10.0); NEUT # 5.2 K/uL (1.8-7.0); NEUT % 67.5 % (50.0-75.0); RBC 4.17 Mil/uL (3.80-5.20); WHITE BLOOD COUNT 7.7 K/uL (4.8-10.8)
[2018-05-04 07:52] LABS: ALBUMIN 3.3 g/dL (3.5-5.0); CALCIUM 8.6 mg/dl (8.6-10.4)
[2018-05-04] MEDS ORDERED: Potassium Chloride 20 mEq ER Tab PO ONE ×2 (09:00→10:30)
[2018-05-04] MEDS ORDERED: [UNRECOGNIZED DRUG - OTHER] PO SCH (10:00)
[2018-05-04] MEDS ORDERED: LINACLOTIDE PO SCH (10:00)
[2018-05-05 09:24] LABS: BASO # 0.2 K/uL (0.0-0.2); BASO % 2.8 % (0.0-2.0); EOS # 0.4 K/uL (0.0-0.7); EOS % 4.6 % (0.0-4.0); HEMOGLOBIN 12.7 g/dL (11.0-16.0); LYMPH # 1.6 K/uL (1.0-4.3); LYMPH % 20.9 % (20.0-40.0); MEAN CELL VOLUME 82.2 fL (81.0-99.0); MEAN CORPUSCULAR HEMOGLOBIN 28.6 pg (27.0-31.0); MEAN CORPUSCULAR HGB CONC 34.8 g/dL (33.0-37.0); MEAN PLATELET VOLUME 9.5 fL (7.2-11.7); MONO # 0.6 K/uL (0.0-0.8); MONO % 7.6 % (0.0-10.0); NEUT # 4.9 K/uL (1.8-7.0); NEUT % 64.1 % (50.0-75.0); NRBC % 0.1 % (0.0-2.0); RBC 4.43 Mil/uL (3.80-5.20); RED CELL DISTRIBUTION WIDTH 13.5 % (11.5-14.5); WHITE BLOOD COUNT 7.7 K/uL (4.8-10.8)
[2018-05-05 09:35] LABS: ALB/GLOB RATIO 1.1 (1.0-2.1); CALCIUM 9.2 mg/dl (8.6-10.4)
[2018-05-05] MEDS ORDERED: Pneumococcal 23-Valent Vaccine IM ONE (10:00)
[2018-05-05] MEDS ORDERED: Potassium Chloride 20 mEq ER Tab PO ONE (10:23)
[2018-05-05] MEDS: Sodium Chloride 0.9% 1,000 ML IV SCH ×2 (11:05→23:50)
[2018-05-05] MEDS: metroNIDAZOLE IV 500 mg/100 ml 500 MG/100 ML BAG IVPB SCH ×2 (14:38→21:39)
--- NOTE | 2018-05-05 15:10 | CP.PCM.PN ---
Subjective - Date & Time of Evaluation Date of Evaluation: 05/05/18 Time of Evaluation: 15:08 - Subjective Subjective: Internal Medicine Progress Note - Dr Carpenter Service Patient seen and examined at bedside. Per nursing no acute events overnight. Patient is having lower abdominal pain, with nausea and diarrhea. Denies any vomiting. States that she has been able to tolerate juices. Denies headaches, dizziness, cp, palpitations, sob, urinary symptoms. Objective - Vital Signs/Intake and Output Vital Signs (last 24 hours): Temp Pulse Resp BP Pulse Ox 98.1 F 70 20 132/77 98 05/05/18 07:00 05/05/18 12:00 05/05/18 07:00 05/05/18 07:00 05/05/18 07:00 - Medications Medications: Current Medications Acetaminophen/Butalbital/Caffeine (Fioricet) 1 tab PO TID PRN PRN Reason: Headache Clonazepam (Klonopin) 0.5 mg PO DAILY [facility] Last Admin: 05/05/18 10:59 Dose: Not Given Famotidine (Pepcid) 40 mg PO DAILY [facility] Last Admin: 05/05/18 10:58 Dose: 40 mg Gabapentin (Neurontin) 300 mg PO DAILY [facility] Last Admin: 05/05/18 10:57 Dose: 300 mg Home Med (Patient's Own Medication) 1 tab PO DAILY [facility] Last Admin: 05/05/18 10:59 Dose: Not Given Sodium Chloride (Sodium Chloride 0.9%) 1,000 mls @ 75 mls/hr IV .[id number] [facility] Last Admin: 05/05/18 11:05 Dose: 75 mls/hr Metronidazole (Flagyl) 500 mg in 100 mls @ 100 mls/hr IVPB Q8 NICOLÁS PRN Reason: Protocol Last Admin: 05/05/18 14:38 Dose: 100 mls/hr Losartan Potassium (Cozaar) 50 mg PO DAILY [facility] Last Admin: 05/05/18 10:58 Dose: 50 mg Metformin HCl (Glucophage) 500 mg PO BIDCC [facility] Last Admin: 05/05/18 11:00 Dose: Not Given Metoclopramide HCl (Reglan) 10 mg IVP Q6H PRN PRN Reason: Nausea/Vomiting Last Admin: 05/05/18 11:09 Dose: 10 mg Ondansetron HCl (Zofran Inj) 4 mg IVP Q6H PRN PRN Reason: Nausea/Vomiting Last Admin: 05/05/18 05:28 Dose: 4 mg Rosuvastatin Calcium (Crestor) 20 mg PO HS NICOLÁS Last Admin: 05/04/18 22:27 Dose: Not Given Sitagliptin Phosphate (Januvia) 50 mg PO DAILY NICOLÁS Last Admin: 05/05/18 11:01 Dose: Not Given Tramadol HCl (Ultram) 50 mg PO TID PRN PRN Reason: Pain, moderate (4-7) Last Admin: 05/03/18 22:32 Dose: 50 mg - Labs Labs: 05/05/18 09:16 05/05/18 09:16 PT 12.4 SECONDS (9.7-12.2) H 05/03/18 14:13 INR 1.1 05/03/18 14:13 APTT 29 SECONDS (21-34) 05/03/18 14:13 - Constitutional Appears: Well, No Acute Distress - Head Exam Head Exam: ATRAUMATIC, NORMAL INSPECTION, NORMOCEPHALIC - Eye Exam Eye Exam: EOMI, Normal appearance Pupil Exam: NORMAL ACCOMODATION - ENT Exam ENT Exam: Mucous Membranes Moist - Neck Exam Neck Exam: Full ROM - Respiratory Exam Respiratory Exam: Clear to Ausculation Bilateral, NORMAL BREATHING PATTERN. absent: Rales, Rhonchi, Wheezes - Cardiovascular Exam Cardiovascular Exam: REGULAR RHYTHM, +S1, +S2 - GI/Abdominal Exam GI & Abdominal Exam: Soft, Tenderness (mild LLQ tenderness to palpation). absent: Guarding, Rigid - Extremities Exam Extremities Exam: Normal Inspection - Back Exam Back Exam: NORMAL INSPECTION - Neurological Exam Neurological Exam: Alert, Awake, Oriented x3 - Psychiatric Exam Psychiatric exam: Normal Affect, Normal Mood - Skin Skin Exam: Dry, Normal Color, Warm Assessment and Plan - Assessment and Plan (Free Text) Assessment: A/P: Patient is a 67 year old female with past medical history of gastritis, DM , HLD, HTN, lower extremity presented to the ED for abdominal pain. Patient also admitted to decreased appetite and recent weight loss. Abdominal Pain likely secondary to Gastroenteritis -Stable, afebrile -Leukocytosis has resolved -CT abd/pelvis showed possible enteritis (see full report) -Started on Flagyl 500mg Q8H IVPB -Stool culture, c diff, fecal leukocytes, ova parasites ordered -Zofran and Reglan prn nausea -Last colonoscopy 12/2017 and showed polyps and internal hemorrhoids, scattered small/large diverticula (see full report) -Pathology showed tubular adenoma/Hyperplastic polyp Hx of Hyperlipidemia -Contine Crestor 20mg PO HS -If LFTs continue to rise, will consider decreasing the dose Elevated LFTs -Fiorecet on hold -Avoid hepatotoxic agents -Will continue to monitor Diabetes Mellitus Type 2 -Januvia 50mg PO daily -Metformin 500mg PO BID -Accuchecks ACHS Diarrhea -F/U stool cultures, c diff, fecal leukocytes, ova/parasites -Hold linzess at this time Hypokalemia -Potassium 3.4 today -Repleted, continue to monitor GI/DVT ppx: -Pepcid 40mg PO daily Plan discussed with Dr Jayden Schafer DO PGY-2
--- NOTE | 2018-05-05 23:27 | CARD ---
APPROVED REPORT EKG Measurement Heart [id number] [place] 176P41 [id number] <Conclusion> Normal sinus rhythm Voltage criteria for left ventricular hypertrophy Prolonged QT Abnormal ECG
[2018-05-06] MEDS: Sodium Chloride 0.9% 1,000 ML IV SCH ×2 (05:03→14:45)
[2018-05-06] MEDS: metroNIDAZOLE IV 500 mg/100 ml 500 MG/100 ML BAG IVPB SCH ×3 (05:03→22:14)
--- NOTE | 2018-05-06 05:14 | HP ---
HISTORY OF PRESENT ILLNESS: A 67-year-old female who was admitted to the hospital with complaint of abdominal pain, nausea, vomiting, diarrhea. The patient came to the ER, found to have . PHYSICAL EXAMINATION: GENERAL: The patient is awake, alert, and oriented. VITAL SIGNS: Temperature is 98, pulse 90. HEENT: Within normal limits. NECK: Supple. CHEST: Symmetrical. HEART: Regular. ABDOMEN: tenderness. EXTREMITIES: No edema. IMPRESSION: The patient suffers from ulcerative colitis. The patient to get bedrest, IV fluids. Dora Carpenter MD
[2018-05-06 08:20] LABS: BASO % 0.2 % (0.0-2.0); EOS # 0.4 K/uL (0.0-0.7); HEMOGLOBIN 11.6 g/dL (11.0-16.0); LYMPH # 1.5 K/uL (1.0-4.3); LYMPH % 23.5 % (20.0-40.0); MEAN CELL VOLUME 82.7 fL (81.0-99.0); MEAN CORPUSCULAR HEMOGLOBIN 28.7 pg (27.0-31.0); MEAN CORPUSCULAR HGB CONC 34.6 g/dL (33.0-37.0); MEAN PLATELET VOLUME 9.1 fL (7.2-11.7); MONO # 0.5 K/uL (0.0-0.8); NEUT # 3.9 K/uL (1.8-7.0); NEUT % 62.3 % (50.0-75.0); NRBC % 0.3 % (0.0-2.0); RBC 4.05 Mil/uL (3.80-5.20); RED CELL DISTRIBUTION WIDTH 13.1 % (11.5-14.5); WHITE BLOOD COUNT 6.2 K/uL (4.8-10.8)
[2018-05-06 08:44] LABS: ALBUMIN 3.3 g/dL (3.5-5.0); CALCIUM 8.3 mg/dl (8.6-10.4)
[2018-05-06] MEDS ORDERED: Potassium Chloride 20 mEq ER Tab PO ONE (08:48)
[2018-05-06] MEDS ORDERED: Potassium Chloride 20 mEq/15 ml LIQ UD PO ONE (10:00)
[2018-05-06] MEDS: Magnesium Sulfate 1 gm in D5W 1 GM/100 ML BAG IVPB SCH ×2 (10:20→11:26)
--- NOTE | 2018-05-06 12:58 | CP.PCM.CON ---
History of Present Illness - History of Present Illness History of Present Illness: 67 yo [place] female known to me from my office since 12/2017. Patient admitted with epigastric pain and LLQ pain with watery diarrhea and nausea and vomiting. Denies fever or chills. No CP, SOB. She had an EGD done 2017 by other doctor in [place] showing gastritis. Presented to me wiht chronic constipation in spite of Linzess and other OtC laxative. COlonoscopy was done 12/24/17 and showed diverticulosis, multiple colon adenomas and internal hemorrhoids. She was last seen in the office on 01/02 and Mineral oil was added to LInzess and Dexilant that she had been taking before. SHe has missed three follow up appointments in January and February since that time and has no follow up appointment now scheduled. She was having epigastric pain at the time of last visit that was felt to possibly be related to colonic distension. CT findings on admission show healing of recent hernia surgery a [facility] but doesnt know why 03/2018(?). Feels better today but still with pain and watery stool without blood. Review of Systems - Constitutional Constitutional: absent: Chills - Cardiovascular Cardiovascular: absent: Chest Pain, Dyspnea, Edema, Palpitations - Respiratory Respiratory: absent: Cough, Dyspnea, Dyspnea on Exertion - Gastrointestinal Gastrointestinal: As Per HPI - Musculoskeletal Musculoskeletal: Back Pain Past Patient History - Past Medical History & Family History Past Medical History?: Yes - Past Social History Smoking Status: Former Smoker Alcohol: None Drugs: Denies - CARDIAC Hx Hypercholesterolemia: Yes Hx Hypertension: Yes - HEENT Hx HEENT Problems: Yes Hx Cataracts: Yes - RENAL Hx Chronic Kidney Disease: No - ENDOCRINE/METABOLIC Hx Diabetes Mellitus Type 2: Yes - HEMATOLOGICAL/ONCOLOGICAL Hx Cirrhosis: No Hx Hepatitis A: No Hx Hepatitis B: No Hx Hepatitis C: No Hx Human Immunodeficiency Virus (HIV): No - INTEGUMENTARY Hx Dermatological Problems: No - MUSCULOSKELETAL/RHEUMATOLOGICAL Hx Back Pain: Yes Hx Falls: No - GASTROINTESTINAL Hx Bowel Surgery: No Hx Clostridium Difficile: No Hx Colitis: No Hx Colostomy: No Hx Constipation: Yes Hx Crohn's Disease: No Hx Diarrhea: No Hx Diverticulitis: Yes Hx Esophageal Varices: No Hx Fatty Liver Disease: No Hx Gall Bladder Disease: No Hx Gastritis: Yes Hx Gastroesophageal Reflux: No Hx Hemorrhoids: No Hx Ileostomy: No Hx Irritable Bowel: No Hx Liver Failure: No Hx Nausea: Yes Hx Pancreatitis: No HX Swallowing Problems: No Hx Ulcer: No Hx Vomiting: Yes - PSYCHIATRIC Hx Anxiety: Yes Hx Depression: Yes Hx Substance Use: No - SURGICAL HISTORY Hx Appendectomy: Yes Hx Cholecystectomy: Yes Hx Herniorrhaphy: Yes - ANESTHESIA Hx Anesthesia: Yes Hx Anesthesia Reactions: No Hx Malignant Hyperthermia: No Meds Allergies/Adverse Reactions: Allergies Allergy/AdvReac Type Severity Reaction Status Date / Time Sulfa (Sulfonamide Allergy Severe ANGIOEDEMA Verified 02/17/18 16:01 Antibiotics) - Medications Medications: Current Medications Acetaminophen/Butalbital/Caffeine (Fioricet) 1 tab PO TID PRN PRN Reason: Headache Clonazepam (Klonopin) 0.5 mg PO DAILY [facility] Last Admin: 05/06/18 10:24 Dose: Not Given Famotidine (Pepcid) 40 mg PO DAILY [facility] Last Admin: 05/06/18 10:22 Dose: 40 mg Gabapentin (Neurontin) 300 mg PO DAILY [facility] Last Admin: 05/06/18 10:22 Dose: 300 mg Sodium Chloride (Sodium Chloride 0.9%) 1,000 mls @ 75 mls/hr IV .[id number] [facility] Last Admin: 05/06/18 05:03 Dose: 75 mls/hr Metronidazole (Flagyl) 500 mg in 100 mls @ 100 mls/hr IVPB Q8 [facility] PRN Reason: Protocol Last Admin: 05/06/18 05:03 Dose: 100 mls/hr Losartan Potassium (Cozaar) 50 mg PO DAILY [facility] Last Admin: 05/06/18 10:22 Dose: 50 mg Metformin HCl (Glucophage) 500 mg PO BIDCC [facility] Last Admin: 05/06/18 10:25 Dose: Not Given Metoclopramide HCl (Reglan) 10 mg IVP Q6H PRN PRN Reason: Nausea/Vomiting Last Admin: 05/06/18 10:22 Dose: 10 mg Ondansetron HCl (Zofran Inj) 4 mg IVP Q6H PRN PRN Reason: Nausea/Vomiting Last Admin: 05/05/18 05:28 Dose: 4 mg Rosuvastatin Calcium (Crestor) 20 mg PO HS [facility] Last Admin: 05/05/18 21:39 Dose: 20 mg Sitagliptin Phosphate (Januvia) 50 mg PO DAILY [facility] Last Admin: 05/06/18 10:24 Dose: Not Given Tramadol HCl (Ultram) 50 mg PO TID PRN PRN Reason: Pain, moderate (4-7) Last Admin: 05/03/18 22:32 Dose: 50 mg Physical Exam - Constitutional Appears: No Acute Distress Additional comments: Obese - Head Exam Head Exam: ATRAUMATIC, NORMOCEPHALIC - Eye Exam Eye Exam: EOMI, PERRL - Respiratory Exam Respiratory Exam: Clear to Auscultation Bilateral, NORMAL BREATHING PATTERN - Cardiovascular Exam Cardiovascular Exam: REGULAR RHYTHM, +S1 - GI/Abdominal Exam GI & Abdominal Exam: Distended, Hyperactive Bowel Sounds, Soft, Tenderness. absent: Guarding, Mass, Rebound, Rigid Additional comments: Large fresh midline scar from subxypoid to suprapubic area (full laparotomy), tender to palpation in epigastrum and LLQ with guarding. No mass or rebound. - Rectal Exam Rectal Exam: NORMAL INSPECTION - Extremities Exam Extremities exam: Positive for: normal inspection. Negative for: pedal edema - Neurological Exam Neurological exam: Alert, Oriented x3 - Psychiatric Exam Psychiatric exam: Depressed, Flat Affect - Skin Skin Exam: Dry, Warm Results - Vital Signs Recent Vital Signs: Last Vital Signs Temp 97.9 F 05/06/18 07:35 Pulse 75 05/06/18 07:35 Resp 20 05/06/18 07:35 BP 151/79 H 05/06/18 07:35 Pulse Ox 97 05/06/18 07:35 - Labs Result Diagrams: 05/06/18 08:14 05/06/18 08:14 Labs: Laboratory Results - last 24 hr 05/05/18 05/05/18 05/05/18 16:23 20:13 20:13 WBC RBC Hgb Hct MCV MCH MCHC RDW Plt Count MPV Neut % (Auto) Lymph % (Auto) [place] % (Auto) Eos % (Auto) Baso % (Auto) Neut # (Auto) Lymph # (Auto) [place] # (Auto) Eos # (Auto) Baso # (Auto) Sodium Potassium Chloride Carbon Dioxide Anion Gap BUN Creatinine Est GFR ( Amer) Est GFR (Non-Af Amer) POC Glucose (mg/dL) 145 H Random Glucose Calcium Phosphorus Magnesium Total Bilirubin AST ALT Alkaline Phosphatase Total Protein Albumin Globulin Albumin/Globulin Ratio Stool Leukocytes, Qual Negative C. difficile Ag & Toxin Negative 05/06/18 05/06/18 05/06/18 06:22 08:14 08:14 WBC 6.2 RBC 4.05 Hgb 11.6 Hct 33.5 L MCV 82.7 MCH 28.7 MCHC 34.6 RDW 13.1 Plt Count 198 MPV 9.1 Neut % (Auto) 62.3 Lymph % (Auto) 23.5 [place] % (Auto) 8.0 Eos % (Auto) 6.0 H Baso % (Auto) 0.2 Neut # (Auto) 3.9 Lymph # (Auto) 1.5 [place] # (Auto) 0.5 Eos # (Auto) 0.4 Baso # (Auto) 0.0 Sodium 141 Potassium 3.2 L Chloride 106 Carbon Dioxide 26 Anion Gap 12 BUN 12 Creatinine 1.3 H Est GFR ( Amer) 49 Est GFR (Non-Af Amer) 41 POC Glucose (mg/dL) 107 Random Glucose 118 H Calcium 8.3 L Phosphorus 2.5 Magnesium 1.4 L Total Bilirubin 0.5 AST 47 H ALT 51 Alkaline Phosphatase 94 Total Protein 6.5 Albumin 3.3 L Globulin 3.2 Albumin/Globulin Ratio 1.0 Stool Leukocytes, Qual C. difficile Ag & Toxin - Imaging and Cardiology CT scan - abdomen Status: Image reviewed by me, Report reviewed by me Assessment & Plan (1) Epigastric pain Assessment and Plan: Patient has been having epigastric pain for the past 6-9 months with prior work up in [place] showing only gastritis. SHe failed to follow up with me after her post-colonoscopy visit. NOw with N/V and diarrhea possibility of infectious gastroenteritis to be determined. Stool studies IV hydration Protonix/Dexilant May need repeat EGD on this admission or as an outpatient if stable Status: Acute (2) Abnormal transaminases Assessment and Plan: May be related to NAFLD r/o viral hepatitis, autoimmune or other CLD Patient has multiple risk factors for NAFLD/DARDEN. Status: Acute (3) Acute gastritis Status: Chronic (4) H/O adenomatous polyp of colon Status: Chronic (5) Acute infective gastroenteritis Assessment and Plan: IV hydration Stool studies as ordered Cipro and Flagyl IV Observe. Status: Acute
--- NOTE | 2018-05-06 14:59 | CP.PCM.PN ---
Subjective - Date & Time of Evaluation Date of Evaluation: 05/06/18 Time of Evaluation: 14:57 - Subjective Subjective: Internal Medicine Progress Note - Dr Carpenter Service Patient seen and examined at bedside. Per nursing no acute events overnight. Patient still reports having watery diarrhea with abdominal pain. She is still nauseous with decreased appetite. Denies vomiting. Denies fever/chills, headaches, dizziness, cp, palpitations, sob, urinary symptoms. Objective - Vital Signs/Intake and Output Vital Signs (last 24 hours): Temp Pulse Resp BP Pulse Ox 97.9 F 72 20 151/79 H 97 05/06/18 07:35 05/06/18 12:00 05/06/18 07:35 05/06/18 07:35 05/06/18 07:35 Intake and Output: 05/06/18 05/06/18 06:59 18:59 Intake Total 840 Balance 840 - Medications Medications: Current Medications Acetaminophen/Butalbital/Caffeine (Fioricet) 1 tab PO TID PRN PRN Reason: Headache Clonazepam (Klonopin) 0.5 mg PO DAILY [facility] Last Admin: 05/06/18 10:24 Dose: Not Given Famotidine (Pepcid) 40 mg PO DAILY [facility] Last Admin: 05/06/18 10:22 Dose: 40 mg Gabapentin (Neurontin) 300 mg PO DAILY [facility] Last Admin: 05/06/18 10:22 Dose: 300 mg Sodium Chloride (Sodium Chloride 0.9%) 1,000 mls @ 75 mls/hr IV .[id number] [facility] Last Admin: 05/06/18 14:45 Dose: Not Given Metronidazole (Flagyl) 500 mg in 100 mls @ 100 mls/hr IVPB Q8 [facility] PRN Reason: Protocol Last Admin: 05/06/18 14:36 Dose: 100 mls/hr Losartan Potassium (Cozaar) 50 mg PO DAILY [facility] Last Admin: 05/06/18 10:22 Dose: 50 mg Metformin HCl (Glucophage) 500 mg PO BIDCC [facility] Last Admin: 05/06/18 10:25 Dose: Not Given Metoclopramide HCl (Reglan) 10 mg IVP Q6H PRN PRN Reason: Nausea/Vomiting Last Admin: 05/06/18 10:22 Dose: 10 mg Ondansetron HCl (Zofran Inj) 4 mg IVP Q6H PRN PRN Reason: Nausea/Vomiting Last Admin: 05/05/18 05:28 Dose: 4 mg Rosuvastatin Calcium (Crestor) 20 mg PO HS [facility] Last Admin: 05/05/18 21:39 Dose: 20 mg Sitagliptin Phosphate (Januvia) 50 mg PO DAILY [facility] Last Admin: 05/06/18 10:24 Dose: Not Given Tramadol HCl (Ultram) 50 mg PO TID PRN PRN Reason: Pain, moderate (4-7) Last Admin: 05/03/18 22:32 Dose: 50 mg - Labs Labs: 05/06/18 08:14 05/06/18 08:14 PT 12.4 SECONDS (9.7-12.2) H 05/03/18 14:13 INR 1.1 05/03/18 14:13 APTT 29 SECONDS (21-34) 05/03/18 14:13 - Additional Findings Additional findings: - Constitutional Appears: Well, No Acute Distress - Head Exam Head Exam: ATRAUMATIC, NORMAL INSPECTION, NORMOCEPHALIC - Eye Exam Eye Exam: EOMI, Normal appearance Pupil Exam: NORMAL ACCOMODATION - ENT Exam ENT Exam: Mucous Membranes Moist - Neck Exam Neck Exam: Full ROM - Respiratory Exam Respiratory Exam: Clear to Ausculation Bilateral, NORMAL BREATHING PATTERN. absent: Rales, Rhonchi, Wheezes - Cardiovascular Exam Cardiovascular Exam: REGULAR RHYTHM, +S1, +S2 - GI/Abdominal Exam GI & Abdominal Exam: Soft, Tenderness (mild LLQ tenderness to palpation). absent: Guarding, Rigid - Extremities Exam Extremities Exam: Normal Inspection - Back Exam Back Exam: NORMAL INSPECTION - Neurological Exam Neurological Exam: Alert, Awake, Oriented x3 - Psychiatric Exam Psychiatric exam: Normal Affect, Normal Mood - Skin Skin Exam: Dry, Normal Color, Warm Assessment and Plan - Assessment and Plan (Free Text) Assessment: A/P: Patient is a 67 year old female with past medical history of gastritis, DM , HLD, HTN, lower extremity presented to the ED for abdominal pain. Patient also admitted to decreased appetite and recent weight loss. Abdominal Pain likely secondary to Gastroenteritis -Stable, afebrile -Leukocytosis has resolved -CT abd/pelvis showed possible enteritis (see full report) -Contiue Flagyl 500mg Q8H IVPB -Stool culture, c diff, fecal leukocytes -Stool ova parasites negative -Zofran and Reglan prn nausea -GI consult requested with Dr Park, help appreciated -Last colonoscopy 12/2017 and showed polyps and internal hemorrhoids, scattered small/large diverticula (see full report) -Pathology showed tubular adenoma/Hyperplastic polyp Hx of Hyperlipidemia -Contine Crestor 20mg PO HS -If LFTs continue to rise, will consider decreasing the dose Elevated LFTs -Fiorecet on hold -Avoid hepatotoxic agents -Will continue to monitor -F/U hepatitis panel and autoimmune workup Diabetes Mellitus Type 2 -Januvia 50mg PO daily -Metformin 500mg PO BID -Accuchecks ACHS Diarrhea -Likely due to enteritis -F/U stool cultures, c diff, fecal leukocytes -Stool Ova parasites negative -Hold linzess at this time Hypokalemia -Potassium 3.2 today -Repleted, continue to monitor GI/DVT ppx: -Pepcid 40mg PO daily Plan discussed with Dr Jayden Schafer DO PGY-2
[2018-05-06] MEDS: Ciprofloxacin 400mg/200ml D5W 400 MG/200 ML BAG IVPB SCH (18:41)
[2018-05-07] MEDS: Sodium Chloride 0.9% 1,000 ML IV SCH ×2 (02:30→09:25)
[2018-05-07] MEDS: metroNIDAZOLE IV 500 mg/100 ml 500 MG/100 ML BAG IVPB SCH ×3 (05:15→21:56)
[2018-05-07] MEDS: Ciprofloxacin 400mg/200ml D5W 400 MG/200 ML BAG IVPB SCH ×2 (06:21→17:43)
[2018-05-07 07:48] LABS: ALB/GLOB RATIO 1.1 (1.0-2.1); ALBUMIN 3.1 g/dL (3.5-5.0); BILIRUBIN,DIRECT 0.3 mg/dL (0.0-0.4)
--- NOTE | 2018-05-07 09:45 | CP.PCM.PN ---
Subjective - Date & Time of Evaluation Date of Evaluation: 05/07/18 Time of Evaluation: 09:30 - Subjective Subjective: f/u abd pain. RN is present . Covering DR Dominguez Less epig pain. Still NAUSEA. Some diarrhea. Denies fever, chills, ANTHONY, cough, RB, melena, hematuria, dysuria Objective - Vital Signs/Intake and Output Vital Signs (last 24 hours): Temp Pulse Resp BP Pulse Ox 97.9 F 74 18 169/74 H 99 05/07/18 07:00 05/07/18 07:32 05/07/18 07:00 05/07/18 07:00 05/07/18 07:27 Intake and Output: 05/07/18 05/07/18 06:59 18:59 Intake Total 1000 Balance 1000 - Medications Medications: Current Medications Acetaminophen/Butalbital/Caffeine (Fioricet) 1 tab PO TID PRN PRN Reason: Headache Clonazepam (Klonopin) 0.5 mg PO DAILY [facility] Last Admin: 05/07/18 09:21 Dose: Not Given Famotidine (Pepcid) 40 mg PO DAILY [facility] Last Admin: 05/07/18 09:16 Dose: 40 mg Gabapentin (Neurontin) 300 mg PO DAILY [facility] Last Admin: 05/07/18 09:15 Dose: 300 mg Sodium Chloride (Sodium Chloride 0.9%) 1,000 mls @ 75 mls/hr IV .[id number] [facility] Last Admin: 05/07/18 09:25 Dose: 75 mls/hr Metronidazole (Flagyl) 500 mg in 100 mls @ 100 mls/hr IVPB Q8 [facility] PRN Reason: Protocol Last Admin: 05/07/18 05:15 Dose: 100 mls/hr Ciprofloxacin (Cipro 400mg/200ml Dsw) 400 mg in 200 mls @ 133 mls/hr IVPB Q12H [facility] PRN Reason: Protocol Last Admin: 05/07/18 06:21 Dose: 133 mls/hr Losartan Potassium (Cozaar) 50 mg PO DAILY [facility] Last Admin: 05/07/18 09:15 Dose: 50 mg Metformin HCl (Glucophage) 500 mg PO BIDCC [facility] Last Admin: 05/07/18 09:00 Dose: Not Given Metoclopramide HCl (Reglan) 10 mg IVP Q6H PRN PRN Reason: Nausea/Vomiting Last Admin: 05/07/18 09:21 Dose: 10 mg Ondansetron HCl (Zofran Inj) 4 mg IVP Q6H PRN PRN Reason: Nausea/Vomiting Last Admin: 05/06/18 22:14 Dose: 4 mg Rosuvastatin Calcium (Crestor) 20 mg PO HS [facility] Last Admin: 05/06/18 22:14 Dose: 20 mg Sitagliptin Phosphate (Januvia) 50 mg PO DAILY [facility] Last Admin: 05/07/18 09:15 Dose: Not Given Tramadol HCl (Ultram) 50 mg PO TID PRN PRN Reason: Pain, moderate (4-7) Last Admin: 05/03/18 22:32 Dose: 50 mg - Labs Labs: 05/06/18 08:14 05/06/18 08:14 PT 12.4 SECONDS (9.7-12.2) H 05/03/18 14:13 INR 1.1 05/03/18 14:13 APTT 29 SECONDS (21-34) 05/03/18 14:13 - Constitutional Appears: Well - Respiratory Exam Respiratory Exam: Clear to Ausculation Bilateral - Cardiovascular Exam Cardiovascular Exam: RRR - GI/Abdominal Exam GI & Abdominal Exam: Soft, Tenderness, Normal Bowel Sounds. absent: Guarding, Mass, Rebound - Extremities Exam Extremities Exam: absent: Calf Tenderness - Neurological Exam Neurological Exam: Alert, Oriented x3 Assessment and Plan (1) Diabetes mellitus Status: Acute (2) Abnormal transaminases Assessment & Plan: fatty liver. Follow labs Status: Acute (3) Acute infective gastroenteritis Assessment & Plan: check stool tests Status: Acute (4) Epigastric pain Assessment & Plan: n/V- on reglan. Consider gastritsis, Upper GI, gsatroenteritis, gastroparesis. P- PPI, correct lytes, consider EGD Status: Acute
[2018-05-07 13:12] LABS: C DIFF TOXIN A B NEGATIVE (NEGATIVE)
[2018-05-07 14:51] LABS: HEPATITIS B SURFACE AG Negative (NEGATIVE)
[2018-05-07 14:57] LABS: HEPATITIS B CORE AB NEGATIVE (NEGATIVE)
[2018-05-07 15:09] LABS: HEPATITIS C ANTIBODY NEGATIVE (NEGATIVE)
[2018-05-07 15:40] LABS: FECAL LEUKOCYTES NEGATIVE (NEGATIVE)
[2018-05-08] MEDS: Sodium Chloride 0.9% 1,000 ML IV SCH ×2 (05:10→13:20)
[2018-05-08] MEDS: metroNIDAZOLE IV 500 mg/100 ml 500 MG/100 ML BAG IVPB SCH (05:13)
[2018-05-08] MEDS: Ciprofloxacin 400mg/200ml D5W 400 MG/200 ML BAG IVPB SCH (06:24)
[2018-05-08 07:53] LABS: BASO # 0.1 K/uL (0.0-0.2); BASO % 1.3 % (0.0-2.0); EOS # 0.4 K/uL (0.0-0.7); EOS % 6.3 % (0.0-4.0); HEMOGLOBIN 11.1 g/dL (11.0-16.0); LYMPH # 1.3 K/uL (1.0-4.3); LYMPH % 22.1 % (20.0-40.0); MEAN CELL VOLUME 80.8 fL (81.0-99.0); MEAN CORPUSCULAR HEMOGLOBIN 28.8 pg (27.0-31.0); MEAN CORPUSCULAR HGB CONC 35.6 g/dL (33.0-37.0); MEAN PLATELET VOLUME 9.1 fL (7.2-11.7); MONO # 0.5 K/uL (0.0-0.8); MONO % 8.4 % (0.0-10.0); NEUT # 3.7 K/uL (1.8-7.0); NEUT % 61.9 % (50.0-75.0); NRBC % 0.1 % (0.0-2.0); RBC 3.87 Mil/uL (3.80-5.20); RED CELL DISTRIBUTION WIDTH 13.2 % (11.5-14.5); WHITE BLOOD COUNT 5.9 K/uL (4.8-10.8)
[2018-05-08 08:12] LABS: ALBUMIN 3.1 g/dL (3.5-5.0); CALCIUM 8.1 mg/dl (8.6-10.4)
--- NOTE | 2018-05-08 10:18 | CP.PCM.PN ---
Subjective - Date & Time of Evaluation Date of Evaluation: 05/08/18 Time of Evaluation: 10:15 - Subjective Subjective: Patient still reports nausea. No further diarrhea and vomiting. No bleeding. LFTs now normal. Objective - Vital Signs/Intake and Output Vital Signs (last 24 hours): Temp Pulse Resp BP Pulse Ox 98.1 F 75 20 186/82 H 100 05/08/18 07:10 05/08/18 09:31 05/08/18 07:10 05/08/18 09:31 05/08/18 07:10 Intake and Output: 05/08/18 05/08/18 06:59 18:59 Intake Total 1100 Balance 1100 - Medications Medications: Current Medications Acetaminophen/Butalbital/Caffeine (Fioricet) 1 tab PO TID PRN PRN Reason: Headache Clonazepam (Klonopin) 0.5 mg PO DAILY [facility] Last Admin: 05/08/18 09:37 Dose: 0.5 mg Famotidine (Pepcid) 40 mg PO DAILY [facility] Last Admin: 05/08/18 09:36 Dose: 40 mg Gabapentin (Neurontin) 300 mg PO DAILY [facility] Last Admin: 05/08/18 09:52 Dose: Not Given Sodium Chloride (Sodium Chloride 0.9%) 1,000 mls @ 75 mls/hr IV .[id number] [facility] Last Admin: 05/08/18 05:10 Dose: Not Given Metronidazole (Flagyl) 500 mg in 100 mls @ 100 mls/hr IVPB Q8 [facility] PRN Reason: Protocol Last Admin: 05/08/18 05:13 Dose: 100 mls/hr Ciprofloxacin (Cipro 400mg/200ml Dsw) 400 mg in 200 mls @ 133 mls/hr IVPB Q12H [facility] PRN Reason: Protocol Last Admin: 05/08/18 06:24 Dose: 133 mls/hr Potassium Chloride (Potassium Chloride 20 Meq/100 Ml) 20 meq in 100 mls @ 50 mls/hr IVPB ONCE ONE Stop: 05/08/18 11:59 Losartan Potassium (Cozaar) 50 mg PO DAILY [facility] Last Admin: 05/08/18 09:34 Dose: 50 mg Metformin HCl (Glucophage) 500 mg PO BIDCC [facility] Last Admin: 05/08/18 09:50 Dose: Not Given Metoclopramide HCl (Reglan) 10 mg IVP Q6H PRN PRN Reason: Nausea/Vomiting Last Admin: 05/08/18 09:37 Dose: 10 mg Ondansetron HCl (Zofran Inj) 4 mg IVP Q6H PRN PRN Reason: Nausea/Vomiting Last Admin: 05/06/18 22:14 Dose: 4 mg Rosuvastatin Calcium (Crestor) 20 mg PO HS [facility] Last Admin: 05/07/18 21:57 Dose: 20 mg Sitagliptin Phosphate (Januvia) 50 mg PO DAILY [facility] Last Admin: 05/08/18 09:35 Dose: 50 mg Tramadol HCl (Ultram) 50 mg PO TID PRN PRN Reason: Pain, moderate (4-7) Last Admin: 05/03/18 22:32 Dose: 50 mg - Labs Labs: 05/08/18 07:15 05/08/18 07:15 PT 12.4 SECONDS (9.7-12.2) H 05/03/18 14:13 INR 1.1 05/03/18 14:13 APTT 29 SECONDS (21-34) 05/03/18 14:13 - Constitutional Appears: No Acute Distress - Head Exam Head Exam: ATRAUMATIC, NORMOCEPHALIC - Respiratory Exam Respiratory Exam: NORMAL BREATHING PATTERN - Cardiovascular Exam Cardiovascular Exam: REGULAR RHYTHM - GI/Abdominal Exam GI & Abdominal Exam: Soft, Normal Bowel Sounds. absent: Distended, Guarding, Tenderness, Mass, Rebound - Extremities Exam Extremities Exam: Normal Inspection Assessment and Plan (1) Epigastric pain Status: Resolved (2) Abnormal transaminases Status: Resolved (3) Acute gastritis Status: Chronic (4) H/O adenomatous polyp of colon Status: Chronic (5) Acute infective gastroenteritis Assessment & Plan: Clinically stable now. Diarrhea has resolved. On Cipro and Flagyl. Change to po. Awaiting final stool study results as ordered. Status: Acute (6) Nausea & vomiting Assessment & Plan: In absence of pain or further infective symptoms may be related to diabetic gastroparesis. Reglan ordered for symptomatic relief. No current plans for EGD. Awaiting transfer to subacute/[place]. Status: Acute
--- NOTE | 2018-05-08 13:11 | CP.PCM.PN ---
Subjective - Date & Time of Evaluation Date of Evaluation: 05/08/18 Time of Evaluation: 13:08 - Subjective Subjective: PROGRESS NOTE FOR DR. CARPENTER'S SERVICE Pt seen and examined at bedside. She continues to complain of nausea. She was seen by Dr. Dominguez and there is no plan for EGD at this time. She is currently being medicated with reglan for nausea and has not had any episodes of vomiting. She is tolerating minimal amounts of food. Denies have any bowel movements today. Objective - Vital Signs/Intake and Output Vital Signs (last 24 hours): Temp Pulse Resp BP Pulse Ox 98.1 F 75 20 186/82 H 100 05/08/18 07:10 05/08/18 09:31 05/08/18 07:10 05/08/18 09:31 05/08/18 07:10 Intake and Output: 05/08/18 05/08/18 06:59 18:59 Intake Total 1100 Balance 1100 - Medications Medications: Current Medications Acetaminophen/Butalbital/Caffeine (Fioricet) 1 tab PO TID PRN PRN Reason: Headache Ciprofloxacin (Cipro) 500 mg PO BID [facility] PRN Reason: Protocol Clonazepam (Klonopin) 0.5 mg PO DAILY [facility] Last Admin: 05/08/18 09:37 Dose: 0.5 mg Famotidine (Pepcid) 20 mg PO DAILY [facility] Gabapentin (Neurontin) 300 mg PO DAILY [facility] Last Admin: 05/08/18 09:52 Dose: Not Given Sodium Chloride (Sodium Chloride 0.9%) 1,000 mls @ 75 mls/hr IV .[id number] [facility] Last Admin: 05/08/18 05:10 Dose: Not Given Potassium Chloride (Potassium Chloride 20 Meq/100 Ml) 20 meq in 100 mls @ 50 mls/hr IVPB ONCE ONE Stop: 05/08/18 11:59 Last Admin: 05/08/18 10:27 Dose: 30 mls/hr Losartan Potassium (Cozaar) 50 mg PO DAILY [facility] Last Admin: 05/08/18 09:34 Dose: 50 mg Metformin HCl (Glucophage) 500 mg PO BIDCC [facility] Last Admin: 05/08/18 09:50 Dose: Not Given Metronidazole (Flagyl) 250 mg PO Q8H [facility] PRN Reason: Protocol Ondansetron HCl (Zofran Inj) 4 mg IVP Q6H PRN PRN Reason: Nausea/Vomiting Last Admin: 05/06/18 22:14 Dose: 4 mg Rosuvastatin Calcium (Crestor) 20 mg PO HS [facility] Last Admin: 05/07/18 21:57 Dose: 20 mg Sitagliptin Phosphate (Januvia) 50 mg PO DAILY [facility] Last Admin: 05/08/18 09:35 Dose: 50 mg Tramadol HCl (Ultram) 50 mg PO TID PRN PRN Reason: Pain, moderate (4-7) Last Admin: 05/03/18 22:32 Dose: 50 mg - Labs Labs: 05/08/18 07:15 05/08/18 07:15 PT 12.4 SECONDS (9.7-12.2) H 05/03/18 14:13 INR 1.1 05/03/18 14:13 APTT 29 SECONDS (21-34) 05/03/18 14:13 - Constitutional Appears: No Acute Distress - Head Exam Head Exam: ATRAUMATIC, NORMOCEPHALIC - Eye Exam Eye Exam: EOMI - ENT Exam ENT Exam: Mucous Membranes Moist - Respiratory Exam Respiratory Exam: Clear to Ausculation Bilateral, NORMAL BREATHING PATTERN - Cardiovascular Exam Cardiovascular Exam: REGULAR RHYTHM, +S1, +S2 - GI/Abdominal Exam GI & Abdominal Exam: Soft, Tenderness (mild/diffuse/greatest in epigastric). absent: Guarding - Neurological Exam Neurological Exam: Alert, Awake, Oriented x3 - Psychiatric Exam Psychiatric exam: Normal Affect, Normal Mood - Skin Skin Exam: Dry, Warm Assessment and Plan - Assessment and Plan (Free Text) Plan: Abdominal Pain likely secondary to Gastroenteritis -Stable, afebrile -Leukocytosis has resolved -CT abd/pelvis showed possible enteritis (see full report) -Contiue Cipro 500mg PO BID; Flagyl 250mg Q8H IVPB -Stool culture, c diff, fecal leukocytes negative -Stool ova parasites negative -Zofran and Reglan prn nausea -GI consult requested with Dr Park, help appreciated In absence of pain or further infective symptoms may be related to diabetic gastroparesis. Reglan ordered for symptomatic relief. No current plans for EGD. Awaiting transfer to [facility]/[place]. -Last colonoscopy 12/2017 and showed polyps and internal hemorrhoids, scattered small/large diverticula (see full report) -Pathology showed tubular adenoma/Hyperplastic polyp Hyperlipidemia -Contine Crestor 20mg PO HS -If LFTs continue to rise, will consider decreasing the dose Elevated LFTs -AST/ALT 44/46 -Fiorecet on hold -Avoid hepatotoxic agents -Will continue to monitor -hepatitis panel negative Diabetes Mellitus Type 2- CONTROLLED WELL -Januvia 50mg PO daily -Metformin 500mg PO BID -Accuchecks ACHS -follow up A1C Diarrhea -Likely due to enteritis -F/U stool cultures, c diff, fecal leukocytes -Stool Ova parasites negative -Hold linzess at this time Hypokalemia -Potassium 2.8 today -Repleted, continue to monitor GI/DVT ppx -Pepcid 20mg PO daily Case discussed with Dr. Carpenter All medical management as per Dr. Jayden Cross D.O.
[2018-05-09 06:59] LABS: BASO # 0.1 K/uL (0.0-0.2); BASO % 1.3 % (0.0-2.0); EOS # 0.3 K/uL (0.0-0.7); EOS % 4.1 % (0.0-4.0); HEMOGLOBIN 12.2 g/dL (11.0-16.0); LYMPH # 1.4 K/uL (1.0-4.3); MEAN CELL VOLUME 80.6 fL (81.0-99.0); MEAN CORPUSCULAR HEMOGLOBIN 28.1 pg (27.0-31.0); MEAN CORPUSCULAR HGB CONC 34.9 g/dL (33.0-37.0); MEAN PLATELET VOLUME 8.9 fL (7.2-11.7); MONO # 0.6 K/uL (0.0-0.8); MONO % 9.2 % (0.0-10.0); NEUT # 4.6 K/uL (1.8-7.0); NEUT % 65.4 % (50.0-75.0); NRBC % 0.9 % (0.0-2.0); RBC 4.35 Mil/uL (3.80-5.20); RED CELL DISTRIBUTION WIDTH 13.2 % (11.5-14.5); WHITE BLOOD COUNT 7.1 K/uL (4.8-10.8)
--- NOTE | 2018-05-09 07:24 | CP.PCM.PN ---
Subjective - Date & Time of Evaluation Date of Evaluation: 05/09/18 Time of Evaluation: 07:24 - Subjective Subjective: Internal Medicine Progress Note - Dr Carpenter Service Patient seen and examined at bedside. Per nursing no acute events overnight. Patient states that she doesn't feel well. States that she is still feeling nauseous and doesn't have an appetite. Abdominal pain and diarrhea has improved. Denies headaches, dizziness, cp, palpitations, sob, urinary symptoms. Objective - Vital Signs/Intake and Output Vital Signs (last 24 hours): Temp Pulse Resp BP Pulse Ox 98 F 74 20 151/74 H 98 05/08/18 23:40 05/08/18 23:40 05/08/18 23:40 05/08/18 23:40 05/08/18 23:40 Intake and Output: 05/09/18 05/09/18 06:59 18:59 Intake Total 850 Balance 850 - Medications Medications: Current Medications Acetaminophen/Butalbital/Caffeine (Fioricet) 1 tab PO TID PRN PRN Reason: Headache Ciprofloxacin (Cipro) 500 mg PO BID [facility] PRN Reason: Protocol Last Admin: 05/08/18 17:46 Dose: 500 mg Clonazepam (Klonopin) 0.5 mg PO DAILY [facility] Last Admin: 05/08/18 09:37 Dose: 0.5 mg Famotidine (Pepcid) 20 mg PO DAILY [facility] Gabapentin (Neurontin) 300 mg PO DAILY [facility] Last Admin: 05/08/18 09:52 Dose: Not Given Losartan Potassium (Cozaar) 50 mg PO DAILY [facility] Last Admin: 05/08/18 09:34 Dose: 50 mg [facility] Last Admin: 05/08/18 17:47 Dose: Not Given Metronidazole (Flagyl) 250 mg PO Q8H [facility] PRN Reason: Protocol Last Admin: 05/09/18 02:37 Dose: 250 mg Ondansetron HCl (Zofran Inj) 4 mg IVP Q6H PRN PRN Reason: Nausea/Vomiting Last Admin: 05/09/18 06:48 Dose: 4 mg Rosuvastatin Calcium (Crestor) 20 mg PO [facility] Last Admin: 05/08/18 21:56 Dose: Not Given Sitagliptin Phosphate (Januvia) 50 mg PO DAILY [facility] Last Admin: 05/08/18 09:35 Dose: 50 mg Tramadol HCl (Ultram) 50 mg PO TID PRN PRN Reason: Pain, moderate (4-7) Last Admin: 05/03/18 22:32 Dose: 50 mg - Labs Labs: 05/09/18 06:50 05/08/18 07:15 PT 12.4 SECONDS (9.7-12.2) H 05/03/18 14:13 INR 1.1 05/03/18 14:13 APTT 29 SECONDS (21-34) 05/03/18 14:13 - Additional Findings Additional findings: - Constitutional Appears: No Acute Distress - Head Exam Head Exam: ATRAUMATIC, NORMOCEPHALIC - Eye Exam Eye Exam: EOMI - ENT Exam ENT Exam: Mucous Membranes Moist - Respiratory Exam Respiratory Exam: Clear to Ausculation Bilateral, NORMAL BREATHING PATTERN - Cardiovascular Exam Cardiovascular Exam: REGULAR RHYTHM, +S1, +S2 - GI/Abdominal Exam GI & Abdominal Exam: Soft, Tenderness (mild/diffuse/greatest in epigastric). absent: Guarding - Neurological Exam Neurological Exam: Alert, Awake, Oriented x3 - Psychiatric Exam Psychiatric exam: Normal Affect, Normal Mood - Skin Skin Exam: Dry, Warm Assessment and Plan - Assessment and Plan (Free Text) Assessment: Abdominal Pain likely secondary to Gastroenteritis -Stable, afebrile -Leukocytosis has resolved -CT abd/pelvis showed possible enteritis (see full report) -Continue Cipro 500mg PO BID; Flagyl 250mg PO Q8H -Stool culture, c diff, fecal leukocytes negative -Stool ova parasites negative -Zofran prn nausea and Reglan [facility] -Will order gastric emptying study as patient still remains nauseous -GI consult requested with Dr Park, help appreciated In absence of pain or further infective symptoms may be related to diabetic gastroparesis. Reglan ordered for symptomatic relief. No current plans for EGD. [facility]. -Last colonoscopy 12/2017 and showed polyps and internal hemorrhoids, scattered small/large diverticula (see full report) -Pathology showed tubular adenoma/Hyperplastic polyp Hyperlipidemia -Contine Crestor 20mg PO HS -If LFTs continue to rise, will consider decreasing the dose Elevated LFTs -AST/ALT 61/46 -Fiorecet on hold -Avoid hepatotoxic agents -Will continue to monitor -Hepatitis panel negative Diabetes Mellitus Type 2- CONTROLLED WELL -Will hold Januvia 50mg PO daily, Metformin 500mg PO BID at this time -Low dose ISS, Accuchecks ACHS -HgA1C 5.3 -Blood sugars are well controlled, will consider stopping Januvia all together Diarrhea (improved) -Likely due to enteritis -Stool cultures, c diff, fecal leukocytes negative -Stool Ova parasites negative -Hold linzess at this time Hypokalemia -Potassium 3.4 today -Repleted, continue to monitor GI/DVT ppx -Pepcid 20mg PO daily Case discussed with Dr. Carpenter All medical management as per Dr. Jayden Schafer DO PGY-2
[2018-05-09 07:50] LABS: ALB/GLOB RATIO 1.2 (1.0-2.1); ALBUMIN 3.6 g/dL (3.5-5.0); CALCIUM 8.2 mg/dl (8.6-10.4)
[2018-05-09] MEDS ORDERED: Potassium Chloride 20 mEq/15 ml LIQ UD PO ONE (14:00)
[2018-05-09] MEDS: (Novolin R) Insulin Human Regular 100 units/ml vial SC SCH ×2 (17:00→21:41)
[2018-05-10 08:13] LABS: BASO # 0.1 K/uL (0.0-0.2); EOS # 0.3 K/uL (0.0-0.7); HEMOGLOBIN 12.3 g/dL (11.0-16.0); LYMPH # 1.5 K/uL (1.0-4.3); LYMPH % 17.6 % (20.0-40.0); MEAN CELL VOLUME 81.1 fL (81.0-99.0); MEAN CORPUSCULAR HEMOGLOBIN 28.5 pg (27.0-31.0); MEAN CORPUSCULAR HGB CONC 35.2 g/dL (33.0-37.0); MONO # 0.7 K/uL (0.0-0.8); MONO % 8.8 % (0.0-10.0); NEUT # 5.8 K/uL (1.8-7.0); NEUT % 68.6 % (50.0-75.0); RBC 4.33 Mil/uL (3.80-5.20); RED CELL DISTRIBUTION WIDTH 13.4 % (11.5-14.5); WHITE BLOOD COUNT 8.4 K/uL (4.8-10.8)
[2018-05-10] MEDS: (Novolin R) Insulin Human Regular 100 units/ml vial SC SCH ×4 (08:19→21:33)
[2018-05-10 08:26] LABS: ALB/GLOB RATIO 1.3 (1.0-2.1); ALBUMIN 3.8 g/dL (3.5-5.0); CALCIUM 8.7 mg/dl (8.6-10.4)
--- NOTE | 2018-05-10 09:57 | CP.PCM.PN ---
Subjective - Date & Time of Evaluation Date of Evaluation: 05/10/18 Time of Evaluation: 09:25 - Subjective Subjective: F/u vomiting , diarrhea Covering DR Dominguez Family is present Reports nausea- can not eat. Reports diarrea yest- but only small volume. Denies fever, chills, SZ, LOC, CP, ANTHONY, cough, RB, melena, abdom pain Objective - Vital Signs/Intake and Output Vital Signs (last 24 hours): Temp Pulse Resp BP Pulse Ox 98.1 F 73 20 134/77 98 05/09/18 23:25 05/09/18 23:25 05/09/18 23:25 05/09/18 23:25 05/09/18 23:25 Intake and Output: 05/10/18 05/10/18 06:59 18:59 Intake Total 150 Balance 150 - Medications Medications: Current Medications Acetaminophen/Butalbital/Caffeine (Fioricet) 1 tab PO TID PRN PRN Reason: Headache Ciprofloxacin (Cipro) 500 mg PO BID [facility] PRN Reason: Protocol Last Admin: 05/09/18 17:26 Dose: 500 mg Clonazepam (Klonopin) 0.5 mg PO DAILY [facility] Last Admin: 05/09/18 11:39 Dose: 0.5 mg Famotidine (Pepcid) 20 mg IVP DAILY [facility] Gabapentin (Neurontin) 300 mg PO DAILY [facility] Last Admin: 05/09/18 11:40 Dose: Not Given Insulin Human Regular (Novolin R) 0 unit SC ACHS [facility] PRN Reason: Protocol Last Admin: 05/10/18 08:19 Dose: Not Given Losartan Potassium (Cozaar) 50 mg PO DAILY [facility] Last Admin: 05/09/18 11:38 Dose: 50 mg Met[facility] ([facility]) [facility] Last Admin: 05/09/18 08:11 Dose: Not Given Metoclopramide HCl (Reglan) 5 mg IVP TID [facility] Last Admin: 05/09/18 17:26 Dose: 5 mg Metronidazole (Flagyl) 250 mg PO Q8H [facility] PRN Reason: Protocol Last Admin: 05/10/18 02:33 Dose: 250 mg Ondansetron HCl (Zofran Inj) 4 mg IVP Q6H PRN PRN Reason: Nausea/Vomiting Last Admin: 05/09/18 11:38 Dose: 4 mg Rosuvastatin Calcium (Crestor) 20 mg PO HS [facility] Last Admin: 05/08/18 21:56 Dose: Not Given Sitagliptin Phosphate (Januvia) 50 mg PO DAILY [facility] Last Admin: 05/09/18 11:40 Dose: Not Given Tramadol HCl (Ultram) 50 mg PO TID PRN PRN Reason: Pain, moderate (4-7) Last Admin: 05/03/18 22:32 Dose: 50 mg - Labs Labs: 05/10/18 08:06 05/10/18 08:06 PT 12.4 SECONDS (9.7-12.2) H 05/03/18 14:13 INR 1.1 05/03/18 14:13 APTT 29 SECONDS (21-34) 05/03/18 14:13 - Constitutional Appears: Non-toxic - Respiratory Exam Respiratory Exam: Clear to Ausculation Bilateral - Cardiovascular Exam Cardiovascular Exam: RRR - GI/Abdominal Exam GI & Abdominal Exam: Soft, Normal Bowel Sounds. absent: Distended, Guarding, Tenderness, Mass, Rebound - Extremities Exam Extremities Exam: absent: Calf Tenderness - Neurological Exam Neurological Exam: Alert, Awake, Oriented x3 Assessment and Plan (1) Diabetes mellitus Status: Acute (2) Abnormal transaminases Assessment & Plan: stable Status: Resolved (3) Acute infective gastroenteritis Status: Acute (4) Epigastric pain Status: Resolved (5) Diarrhea Assessment & Plan: No large volume Status: Acute (6) Vomiting Assessment & Plan: Consider gastroparesis. Scheduled for gastric emptying study Status: Acute
[2018-05-10] MEDS: Potassium Chloride 20 mEq 100 ML IV SCH (13:25)
[2018-05-10] MEDS: Potassium Ch 20mEq in D5-1/2NS 1,000 ML IV SCH (14:22)
[2018-05-10] MEDS ORDERED: Potassium Chloride 20 mEq ER Tab PO ONE (17:00)
--- NOTE | 2018-05-10 17:12 | NM ---
PROCEDURE: Gastric emptying study HISTORY: Intractable nausea COMPARISON: 05/03/2018 CT abdomen pelvis. TECHNIQUE: 2 oz of egg white admixed with 1.1 mCi technetium 99 M sulfur colloid combined with 1 slice of toast, jelly 3 oz of water. FINDINGS: Commencement of examination: Percent emptied, solid 0% Percent residual, solid 100 % 1 hr: Percent emptied, solid 88 % Percent residual, solid 12 % 2 hr: Percent emptied, solid 97 % Percent residual, solid 3% 4 hr: Percent emptied, solid 98 % Percent residual, solid 2% Profile IMPRESSION: Accelerated gastric emptying. Normal range percent empty 1 hr 0-63 % 2 hr 40-70 % 4 hr 90-100 % Normal range percent remaining 1 hr 37-90% 2 hr 30-60 % 4 hr 0-10 %
[2018-05-11 00:01] LABS: ALPHA-2-MACROGLOBULIN 128 mg/dL (106-279); GGT 18 U/L (3-65)
[2018-05-11] MEDS: Potassium Ch 20mEq in D5-1/2NS 1,000 ML IV SCH ×2 (03:25→17:22)
[2018-05-11] MEDS: (Novolin R) Insulin Human Regular 100 units/ml vial SC SCH ×4 (07:57→21:56)
[2018-05-11 08:20] LABS: BASO # 0.1 K/uL (0.0-0.2); BASO % 1.2 % (0.0-2.0); EOS # 0.5 K/uL (0.0-0.7); EOS % 6.8 % (0.0-4.0); LYMPH # 1.4 K/uL (1.0-4.3); LYMPH % 19.7 % (20.0-40.0); MEAN CELL VOLUME 81.4 fL (81.0-99.0); MEAN CORPUSCULAR HEMOGLOBIN 28.6 pg (27.0-31.0); MEAN CORPUSCULAR HGB CONC 35.2 g/dL (33.0-37.0); MONO # 0.7 K/uL (0.0-0.8); MONO % 10.3 % (0.0-10.0); NEUT # 4.3 K/uL (1.8-7.0); NRBC % 0.1 % (0.0-2.0); RBC 4.21 Mil/uL (3.80-5.20); RED CELL DISTRIBUTION WIDTH 13.4 % (11.5-14.5)
[2018-05-11 08:39] LABS: ALB/GLOB RATIO 1.2 (1.0-2.1); ALBUMIN 3.4 g/dL (3.5-5.0); ALT/SGPT 49 U/L (9-52); AST/SGOT 41 U/L (14-36); BLOOD UREA NITROGEN 10 mg/dL (7-17); CALCIUM 8.3 mg/dl (8.6-10.4); GFR AFRICAN-AMERICAN > 60; GFR NON-AFRICAN AMERICAN 55
[2018-05-11] MEDS: Potassium Chloride 20 mEq ER Tab PO SCH (10:16)
--- NOTE | 2018-05-11 11:12 | CP.PCM.PN ---
Subjective - Date & Time of Evaluation Date of Evaluation: 05/11/18 Time of Evaluation: 10:00 - Subjective Subjective: F/U nauseqa Covering DR Angelica Rico RB, melena, CP, SOB, fever ANTHONY, cough, hemoptysis Objective - Vital Signs/Intake and Output Vital Signs (last 24 hours): Temp Pulse Resp BP Pulse Ox 98.1 F 71 18 139/84 98 05/11/18 09:08 05/11/18 09:08 05/11/18 09:08 05/11/18 09:08 05/11/18 09:08 Intake and Output: 05/11/18 05/11/18 06:59 18:59 Intake Total 640 Balance 640 - Medications Medications: Current Medications Acetaminophen/Butalbital/Caffeine (Fioricet) 1 tab PO TID PRN PRN Reason: Headache Ciprofloxacin (Cipro) 500 mg PO BID [facility] PRN Reason: Protocol Last Admin: 05/11/18 10:16 Dose: 500 mg Clonazepam (Klonopin) 0.5 mg PO DAILY [facility] Last Admin: 05/11/18 10:16 Dose: 0.5 mg Famotidine (Pepcid) 20 mg IVP DAILY [facility] Last Admin: 05/11/18 10:18 Dose: 20 mg Gabapentin (Neurontin) 300 mg PO DAILY [facility] Last Admin: 05/11/18 10:17 Dose: Not Given Potassium Chloride/Dextrose/Sod Cl (Potassium Chl 20 Meq In D5-1/2ns) 1,000 mls @ 80 mls/hr IV .[id number] [facility] Last Admin: 05/11/18 03:25 Dose: 80 mls/hr Insulin Human Regular (Novolin R) 0 unit SC ACHS [facility] PRN Reason: Protocol Last Admin: 05/11/18 07:57 Dose: Not Given Losartan Potassium (Cozaar) 50 mg PO DAILY [facility] Last Admin: 05/11/18 10:26 Dose: 50 mg Metformin HCl (Glucophage) 500 mg PO BIDCC [facility] Last Admin: 05/09/18 08:11 Dose: Not Given Metoclopramide HCl (Reglan) 5 mg IVP TID [facility] Last Admin: 05/11/18 10:18 Dose: 5 mg Metronidazole (Flagyl) 250 mg PO Q8H [facility] PRN Reason: Protocol Last Admin: 07/08/18 10:16 Dose: 250 mg Ondansetron HCl (Zofran Inj) 4 mg IVP Q6H PRN PRN Reason: Nausea/Vomiting Last Admin: 05/09/18 11:38 Dose: 4 mg Potassium Chloride (K-Dur 20 Meq Er Tab) 40 meq PO DAILY [facility] Last Admin: 05/11/18 10:16 Dose: 40 meq Rosuvastatin Calcium (Crestor) 20 mg PO HS [facility] Last Admin: 05/08/18 21:56 Dose: Not Given Sitagliptin Phosphate (Januvia) 50 mg PO DAILY [facility] Last Admin: 05/09/18 11:40 Dose: Not Given Tramadol HCl (Ultram) 50 mg PO TID PRN PRN Reason: Pain, moderate (4-7) Last Admin: 05/03/18 22:32 Dose: 50 mg - Labs Labs: 05/11/18 08:07 05/11/18 08:07 PT 12.4 SECONDS (9.7-12.2) H 05/03/18 14:13 INR 1.1 05/03/18 14:13 APTT 29 SECONDS (21-34) 05/03/18 14:13 - Constitutional Appears: Well - Respiratory Exam Respiratory Exam: Clear to Ausculation Bilateral - Cardiovascular Exam Cardiovascular Exam: RRR - GI/Abdominal Exam GI & Abdominal Exam: Soft, Normal Bowel Sounds. absent: Guarding, Tenderness, Mass - Extremities Exam Extremities Exam: absent: Calf Tenderness - Neurological Exam Neurological Exam: Alert, Oriented x3 Assessment and Plan (1) Diabetes mellitus Status: Acute (2) Abnormal transaminases Status: Resolved (3) Acute infective gastroenteritis Status: Acute (4) Epigastric pain Status: Resolved (5) Diarrhea Status: Acute (6) Vomiting Assessment & Plan: GAstr empty test is neg. Consider gastritis. Will speak to Dr Dominguez about endosocpy. Status: Acute
[2018-05-11 16:41] VITALS: RESP 20
[2018-05-12] MEDS: Potassium Ch 20mEq in D5-1/2NS 1,000 ML IV SCH ×3 (04:30→17:00)
[2018-05-12] MEDS: (Novolin R) Insulin Human Regular 100 units/ml vial SC SCH ×3 (07:46→17:10)
[2018-05-12 08:02] VITALS: O2SAT 100
[2018-05-12 08:35] LABS: BASO # 0.1 K/uL (0.0-0.2); BASO % 1.1 % (0.0-2.0); EOS # 0.6 K/uL (0.0-0.7); EOS % 8.9 % (0.0-4.0); HEMOGLOBIN 11.6 g/dL (11.0-16.0); LYMPH # 1.5 K/uL (1.0-4.3); LYMPH % 22.9 % (20.0-40.0); MEAN CELL VOLUME 81.8 fL (81.0-99.0); MEAN CORPUSCULAR HEMOGLOBIN 28.2 pg (27.0-31.0); MEAN CORPUSCULAR HGB CONC 34.5 g/dL (33.0-37.0); MEAN PLATELET VOLUME 9.4 fL (7.2-11.7); MONO # 0.7 K/uL (0.0-0.8); MONO % 9.8 % (0.0-10.0); NEUT # 3.8 K/uL (1.8-7.0); NEUT % 57.3 % (50.0-75.0); RBC 4.1 Mil/uL (3.80-5.20); RED CELL DISTRIBUTION WIDTH 13.9 % (11.5-14.5); WHITE BLOOD COUNT 6.7 K/uL (4.8-10.8)
[2018-05-12 08:59] LABS: ALB/GLOB RATIO 1.2 (1.0-2.1); ALBUMIN 3.4 g/dL (3.5-5.0); ALT/SGPT 44 U/L (9-52); AST/SGOT 31 U/L (14-36); BLOOD UREA NITROGEN 7 mg/dL (7-17); CALCIUM 8.5 mg/dl (8.6-10.4); GFR AFRICAN-AMERICAN > 60; GFR NON-AFRICAN AMERICAN 55
[2018-05-12] MEDS: Potassium Chloride 20 mEq ER Tab PO SCH (09:36)
[2018-05-12] MEDS ORDERED: Potassium Chloride 20 mEq ER Tab PO ONE (14:00)
--- NOTE | 2018-05-12 14:11 | CP.PCM.PN ---
Subjective - Date & Time of Evaluation Date of Evaluation: 05/12/18 Time of Evaluation: 11:11 - Subjective Subjective: PGY2 Medicine Note for Dr. Carpenter Patient seen and examined this morning at bedside. No acute events overnight. Patient's abdominal pain and diarrhea has resolved. She denies black or bloody stools. She is tolerating her diet. Patient has no complaints at this time. Denies fevers, chills, nausea, vomiting, diarrhea, constipation, chest pain, shortness of breath, palpitations, headaches. Objective - Vital Signs/Intake and Output Vital Signs (last 24 hours): Temp Pulse Resp BP Pulse Ox 97.8 F 69 20 123/80 100 05/12/18 07:00 05/12/18 07:00 05/12/18 07:00 05/12/18 07:00 05/12/18 07:00 Intake and Output: 05/12/18 05/12/18 06:59 18:59 Intake Total 640 840 Output Total 401 Balance 640 439 - Medications Medications: Current Medications Acetaminophen/Butalbital/Caffeine (Fioricet) 1 tab PO TID PRN PRN Reason: Headache Ciprofloxacin (Cipro) 500 mg PO BID [facility] PRN Reason: Protocol Last Admin: 05/12/18 09:37 Dose: 500 mg Clonazepam (Klonopin) 0.5 mg PO DAILY [facility] Last Admin: 05/12/18 09:38 Dose: 0.5 mg Famotidine (Pepcid) 20 mg IVP DAILY [facility] Last Admin: 05/12/18 09:36 Dose: 20 mg Gabapentin (Neurontin) 300 mg PO DAILY [facility] Last Admin: 05/12/18 09:48 Dose: Not Given Potassium Chloride/Dextrose/Sod Cl (Potassium Chl 20 Meq In D5-1/2ns) 1,000 mls @ 80 mls/hr IV .[id number] [facility] Last Admin: 05/12/18 06:51 Dose: 80 mls/hr Insulin Human Regular (Novolin R) 0 unit SC ACHS [facility] PRN Reason: Protocol Last Admin: 05/12/18 12:30 Dose: Not Given Losartan Potassium (Cozaar) 50 mg PO DAILY [facility] Last Admin: 05/12/18 09:49 Dose: Not Given Metformin HCl (Glucophage) 500 mg PO BIDCC [facility] Last Admin: 05/09/18 08:11 Dose: Not Given Metoclopramide HCl (Reglan) 5 mg IVP TID [facility] Last Admin: 05/12/18 09:56 Dose: 5 mg Metronidazole (Flagyl) 250 mg PO Q8H [facility] PRN Reason: Protocol Last Admin: 05/12/18 11:30 Dose: 250 mg Ondansetron HCl (Zofran Inj) 4 mg IVP Q6H PRN PRN Reason: Nausea/Vomiting Last Admin: 05/09/18 11:38 Dose: 4 mg Potassium Chloride (K-Dur 20 Meq Er Tab) 40 meq PO DAILY [facility] Last Admin: 05/12/18 09:36 Dose: 40 meq Rosuvastatin Calcium (Crestor) 20 mg PO HS [facility] Last Admin: 05/08/18 21:56 Dose: Not Given Sitagliptin Phosphate (Januvia) 50 mg PO DAILY [facility] Last Admin: 05/09/18 11:40 Dose: Not Given Tramadol HCl (Ultram) 50 mg PO TID PRN PRN Reason: Pain, moderate (4-7) Last Admin: 05/03/18 22:32 Dose: 50 mg - Labs Labs: 05/12/18 08:24 05/12/18 08:24 PT 12.4 SECONDS (9.7-12.2) H 05/03/18 14:13 INR 1.1 05/03/18 14:13 APTT 29 SECONDS (21-34) 05/03/18 14:13 Assessment and Plan - Assessment and Plan (Free Text) Plan: - Constitutional Appears: No Acute Distress - Head Exam Head Exam: ATRAUMATIC, NORMOCEPHALIC - Eye Exam Eye Exam: EOMI - ENT Exam ENT Exam: Mucous Membranes Moist - Respiratory Exam Respiratory Exam: Clear to Ausculation Bilateral, NORMAL BREATHING PATTERN - Cardiovascular Exam Cardiovascular Exam: REGULAR RHYTHM, +S1, +S2 - GI/Abdominal Exam GI & Abdominal Exam: Soft, Tenderness (mild/diffuse/greatest in epigastric). absent: Guarding - Neurological Exam Neurological Exam: Alert, Awake, Oriented x3 - Psychiatric Exam Psychiatric exam: Normal Affect, Normal Mood - Skin Skin Exam: Dry, Warm Assessment and Plan - Assessment and Plan (Free Text) Assessment: Abdominal Pain likely secondary to Gastroenteritis (resolved -Stable, afebrile -Leukocytosis has resolved -CT abd/pelvis showed possible enteritis (see full report) -Continue Cipro 500mg PO BID; Flagyl 250mg PO Q8H -Stool culture, c diff, fecal leukocytes negative -Stool ova parasites negative -Zofran prn nausea and Reglan NICOLÁS -gastric emptying study - shows accelerated emptying -GI consult requested with Dr Park, help appreciated In absence of pain or further infective symptoms may be related to diabetic gastroparesis. Reglan ordered for symptomatic relief. No current plans for EGD. Awaiting transfer to [facility]. -Last colonoscopy 12/2017 and showed polyps and internal hemorrhoids, scattered small/large diverticula (see full report) -Pathology showed tubular adenoma/Hyperplastic polyp Hyperlipidemia -Contine Crestor 20mg PO HS -If LFTs continue to rise, will consider decreasing the dose Elevated LFTs (resolved) -AST/ALT -Avoid hepatotoxic agents -Will continue to monitor -Hepatitis panel negative Diabetes Mellitus Type 2- CONTROLLED WELL -Will hold Januvia 50mg PO daily, Metformin 500mg PO BID at this time -Low dose ISS, Accuchecks ACHS -HgA1C 5.3 -Blood sugars are well controlled, will consider stopping Januvia all together Diarrhea (improved) -Likely due to enteritis -Stool cultures, c diff, fecal leukocytes negative -Stool Ova parasites negative -Hold linzess at this time Hypokalemia -Potassium 3.2 today -Repleted GI/DVT ppx -Pepcid 20mg PO daily DISPO: Patient discharged home with the following instructions: Patient is a to be discharged home with services per Dr. Carpenter. Patient is to follow up with her primary care physician within 1 week of discharge. If patient does not have a primary care physician, she can follow up with [facility] located in the [facility]. Please call and schedule an appointment. Patient is to follow up with Dr. Dominguez (Stomach Doctor) within two weeks of discharge. Please call and scheduled an appointment. Patient is to take medications as directed. No new prescriptions given. If patient experiences any new or worsening symptoms, please go directly to the nearest emergency room. Take care and be well. Case discussed with Dr. Carpenter All medical management as per Dr. Jayden Ag Sam PGY2
[2018-05-12 16:24] VITALS: BP 121/81; PULSE 77; TEMP 97.9
--- NOTE | 2018-05-12 17:11 | CP.PCM.PN ---
Subjective - Date & Time of Evaluation Date of Evaluation: 05/12/18 Time of Evaluation: 17:09 - Subjective Subjective: Still with nausea, no diarrhea or pain. Objective - Vital Signs/Intake and Output Vital Signs (last 24 hours): Temp Pulse Resp BP Pulse Ox 97.9 F 77 20 121/81 100 05/12/18 16:23 05/12/18 16:23 05/12/18 16:23 05/12/18 16:23 05/12/18 16:23 Intake and Output: 05/12/18 05/12/18 06:59 18:59 Intake Total 640 1600 Output Total 401 Balance 640 1199 - Medications Medications: Current Medications Acetaminophen/Butalbital/Caffeine (Fioricet) 1 tab PO TID PRN PRN Reason: Headache Ciprofloxacin (Cipro) 500 mg PO BID [facility] PRN Reason: Protocol Last Admin: 05/12/18 09:37 Dose: 500 mg Clonazepam (Klonopin) 0.5 mg PO DAILY [facility] Last Admin: 05/12/18 09:38 Dose: 0.5 mg Famotidine (Pepcid) 20 mg IVP DAILY [facility] Last Admin: 05/12/18 09:36 Dose: 20 mg Gabapentin (Neurontin) 300 mg PO DAILY [facility] Last Admin: 05/12/18 09:48 Dose: Not Given Potassium Chloride/Dextrose/Sod Cl (Potassium Chl 20 Meq In D5-1/2ns) 1,000 mls @ 80 mls/hr IV .[id number] [facility] Last Admin: 05/12/18 06:51 Dose: 80 mls/hr Insulin Human Regular (Novolin R) 0 unit SC ACHS [facility] PRN Reason: Protocol Last Admin: 05/12/18 12:30 Dose: Not Given Losartan Potassium (Cozaar) 50 mg PO DAILY [facility] Last Admin: 05/12/18 09:49 Dose: Not Given Metformin HCl (Glucophage) 500 mg PO BIDCC [facility] Last Admin: 05/09/18 08:11 Dose: Not Given Metoclopramide HCl (Reglan) 5 mg IVP TID [facility] Last Admin: 05/12/18 14:41 Dose: 5 mg Metronidazole (Flagyl) 250 mg PO Q8H [facility] PRN Reason: Protocol Last Admin: 05/12/18 11:30 Dose: 250 mg Ondansetron HCl (Zofran Inj) 4 mg IVP Q6H PRN PRN Reason: Nausea/Vomiting Last Admin: 05/09/18 11:38 Dose: 4 mg Potassium Chloride (K-Dur 20 Meq Er Tab) 40 meq PO DAILY [facility] Last Admin: 05/12/18 09:36 Dose: 40 meq Rosuvastatin Calcium (Crestor) 20 mg PO HS [facility] Last Admin: 05/08/18 21:56 Dose: Not Given Sitagliptin Phosphate (Januvia) 50 mg PO DAILY [facility] Last Admin: 05/09/18 11:40 Dose: Not Given Tramadol HCl (Ultram) 50 mg PO TID PRN PRN Reason: Pain, moderate (4-7) Last Admin: 05/03/18 22:32 Dose: 50 mg - Labs Labs: 05/12/18 08:24 05/12/18 08:24 PT 12.4 SECONDS (9.7-12.2) H 05/03/18 14:13 INR 1.1 05/03/18 14:13 APTT 29 SECONDS (21-34) 05/03/18 14:13 - Constitutional Appears: No Acute Distress - Head Exam Head Exam: ATRAUMATIC, NORMOCEPHALIC - Respiratory Exam Respiratory Exam: NORMAL BREATHING PATTERN - Cardiovascular Exam Cardiovascular Exam: REGULAR RHYTHM - GI/Abdominal Exam GI & Abdominal Exam: Distended, Soft, Normal Bowel Sounds. absent: Tenderness, Mass, Rebound - Extremities Exam Extremities Exam: Normal Inspection Assessment and Plan (1) Epigastric pain Status: Resolved (2) Abnormal transaminases Status: Resolved (3) Acute gastritis Status: Chronic (4) H/O adenomatous polyp of colon Status: Chronic (5) Acute infective gastroenteritis Status: Resolved (6) Nausea & vomiting Status: Acute - Assessment and Plan (Free Text) Assessment: Gastric empying scan was read as normal. If Nausea persists will schedule for EGD on Saturday. D/C Cipro and Flagyl which she has been on for seven days.
== END 2018-05-12 18:00 | disposition home or self-care (01) | DRG 392 ==
LOC: C.ER 12:19 → C.9E 17:38 → C.6T 19:12 → C.3T 05-12 10:56
PROVIDERS: ADMIT Internal Medicine Pulmonary Disease; ATTEND Internal Medicine Pulmonary Disease
DX: A09 Infectious gastroenteritis and colitis, unspecified (principal); K29.00 Acute gastritis without bleeding; E86.0 Dehydration; E87.6 Hypokalemia; N39.0 Urinary tract infection, site not specified; E11.9 Type 2 diabetes mellitus without complications; E78.00 Pure hypercholesterolemia, unspecified; I10 Essential (primary) hypertension; K59.09 Other constipation; K64.8 Other hemorrhoids; E78.5 Hyperlipidemia, unspecified; Z79.84 Long term (current) use of oral hypoglycemic drugs; Z87.891 Personal history of nicotine dependence; Z90.49 Acquired absence of other specified parts of digestive tract

== ENCOUNTER 2018-05-20 07:16 | Day surgery (SDC) | payer MEDICARE, OTHER ==
[2018-05-20 07:51] VITALS: O2SAT 100
--- NOTE | 2018-05-20 08:37 | CP.SDSHP ---
Same Day Surgery H & P - History Proposed Procedure: EGD Pre-Op Diagnosis: persistent epigastric pain. dysphagia - Previous Medical/Surgical History Cardiac: Hypertension Endocrine/Metabolic: Diabetes, Obesity Misc: Other (Diverticulosis, Gastritis, GERD, colon polyps) Previous Surgical History: JOHN PAUL/BSO. x 1 - Allergies Allergies: Allergies Sulfa (Sulfonamide Antibiotics) Allergy (Severe, Verified 02/17/18 16:01) ANGIOEDEMA - Physical Exam Vital Signs: Vital Signs 05/20/18 07:42 Temperature 97.3 F L Pulse Rate 77 Respiratory 19 Rate Blood Pressure 120/72 O2 Sat by Pulse 100 Oximetry Mental Status: Alert & Oriented x3 Neuro: WNL Heart: WNL Lungs: WNL GI: WNL - Impression Impression: epigastric pain. dysphagia Pt. Evaluated Today:Candidate for Anesthesia & Procedure: Yes - Date & Time Date: 05/20/18 Time: 08:37 Short Stay Discharge - Short Stay Discharge Admitting Diagnosis/Reason for Visit: NAUSEA WITH VOMITTING//DYSHAGIA LT UP QUAD Disposition: HOME/ ROUTINE
[2018-05-20] MEDS ORDERED: Pantoprazole 40 mg EC Tab PO STA (08:38)
[2018-05-20] MEDS ORDERED: Propofol 10 mg/ml Inj (20 ML) ONE (08:44)
[2018-05-20] MEDS ORDERED: Lidocaine Hydrochloride 5 ML INJ ONE (08:44)
[2018-05-20 09:32] VITALS: TEMP 96.9
[2018-05-20 10:19] VITALS: BP 127/72; PULSE 62; RESP 13
== END 2018-05-20 10:17 | disposition home or self-care (01) ==
LOC: C.ENDO 07:16
PROVIDERS: ATTEND Internal Medicine Gastroenterology
DX: K21.0 Gastro-esophageal reflux disease with esophagitis (principal); R11.2 Nausea with vomiting, unspecified; R13.10 Dysphagia, unspecified; R10.12 Left upper quadrant pain; K29.00 Acute gastritis without bleeding; E11.9 Type 2 diabetes mellitus without complications; E66.9 Obesity, unspecified; I10 Essential (primary) hypertension; Z88.2 Allergy status to sulfonamides
CPT/HCPCS: 43239; 82948; 88305; J2704

== ENCOUNTER 2018-06-02 10:32 | Emergency (ER) | payer MEDICARE, OTHER ==
[2018-06-02 10:32] VITALS: BMI 39.8
[2018-06-02 11:00] VITALS: RESP 20; TEMP 98; O2SAT 100
--- NOTE | 2018-06-02 11:50 | C.PDOC ---
History Of Present Illness 67 year old female with past medical history of gastritis, DM, HLD, HTN complains of lower abdominal pain. Patient also admitted to decreased appetite and nausea. Patient has lower abdominal pain and urinary frequency and burning ongoing for the past week. Patient was seen by her PMD, Dr Carpenter, who did blood work. States four days ago, she received a call from the office, informing her of a UTI and that she will be given medication, but when she went to the pharmacy, no medication was available, resulting in her coming to ED for further evaluation. She denies fever, chills, chest pain, vomiting, hematuria, or any other associated symptoms. No other complaints at this time. Time Seen by Provider: 06/02/18 11:33 Chief Complaint (Nursing): GI Problem History Per: Patient History/Exam Limitations: no limitations Onset/Duration Of Symptoms: Days Current Symptoms Are (Timing): Still Present Past Medical History Reviewed: Historical Data, Nursing Documentation, Vital Signs Vital Signs: Last Vital Signs Temp 98.0 F 06/02/18 10:56 Pulse 70 06/02/18 10:56 Resp 20 06/02/18 10:56 BP 139/85 06/02/18 10:56 Pulse Ox 100 06/02/18 13:15 - Medical History PMH: Anxiety, Back Problems (chronic), Depression, Diabetes, Diverticulitis, Gastritis, HTN, Hypercholesterolemia, Hyperlipidemia Surgical History: Appendectomy, Cholecystectomy, Endoscopy Family History: States: No Known Family Hx - Social History Hx Tobacco Use: No Hx Alcohol Use: No Hx Substance Use: No - Immunization History Hx Tetanus Toxoid Vaccination: No Hx Influenza Vaccination: No Hx Pneumococcal Vaccination: No Review Of Systems Constitutional: Negative for: Fever Cardiovascular: Negative for: Chest Pain Respiratory: Negative for: Shortness of Breath Gastrointestinal: Positive for: Nausea, Abdominal Pain. Negative for: Vomiting Genitourinary: Positive for: Frequency. Negative for: Dysuria, Hematuria, Vaginal Discharge, Vaginal Bleeding Musculoskeletal: Negative for: Back Pain Neurological: Negative for: Weakness, Numbness, Headache, Dizziness Physical Exam - Physical Exam Appears: Non-toxic, No Acute Distress Skin: Normal Color, Warm, Dry, No Rash Head: Atraumatic, Normacephalic Eye(s): bilateral: Normal Inspection Nose: Normal Oral Mucosa: Moist Lips: Normal Appearing Neck: Normal ROM Chest: Symmetrical Cardiovascular: Rhythm Regular, No Murmur Respiratory: Normal Breath Sounds, No Accessory Muscle Use Gastrointestinal/Abdominal: Soft, Tenderness (mild to lower abddomen), No Distention, No Guarding, No Rebound, Other (obese) Back: Normal Inspection Extremity: Normal ROM, No Deformity Neurological/Psych: Oriented x3, Normal Speech Gait: Steady ED Course And Treatment - Laboratory Results Result Diagrams: 06/02/18 12:36 06/02/18 12:36 O2 Sat by Pulse Oximetry: 100 (RA) Pulse Ox Interpretation: Normal Medical Decision Making Medical Decision Making: Impression: urinary sx Prior records reviewed patient admitted 05/03-05/12 for abdominal pain. Plan: * Labs * UA Progress: Labs reviewed with no acute changes from prior visits. No leukocytosis or electrolyte abnormality. Urine shows trace LE. Patient complains of dysuria and frequency. Plan is to send culture and treat. Advise the patient to follow up with her PMD Dr Carpenter in office in few days. Patient feels comfortable going home and will be discharged. Instructed to return to ER if symptoms worsen or new symptoms arise. Disposition Counseled Patient/Family Regarding: Diagnosis, Need For Followup, Rx Given - Disposition Referrals: Dora Carpenter MD [Staff Provider] - Disposition: HOME/ ROUTINE Disposition Time: 13:13 Condition: STABLE Additional Instructions: Farida un seguimiento con coley mdico habitual para mayor cuidado y manejo aleisha antibiticos dos veces al da Prescriptions: Ciprofloxacin [Cipro] 1 tab PO BID #6 tab Famotidine [Pepcid] 20 mg PO DAILY #20 tab Instructions: Urinary Tract Infection, Adult (DC) Print Language: SERBIAN - POA Present On Arrival: None - Clinical Impression Clinical Impression: UTI (urinary tract infection) - Scribe Statement The provider has reviewed the documentation as recorded by the Scribe (Kory Jim) All medical record entries made by the Scribe were at my direction and personally dictated by me. I have reviewed the chart and agree that the record accurately reflects my personal performance of the history, physical exam, medical decision making, and the department course for this patient. I have also personally directed, reviewed, and agree with the discharge instructions and disposition.
[2018-06-02] MEDS ORDERED: Sodium Chloride 0.9% 1,000 ML ONE (12:23)
[2018-06-02] MEDS: Sodium Chloride 0.9% 1,000 ML IV ONE (12:37)
[2018-06-02 12:39] LABS: BASO # 0.1 K/uL (0.0-0.2); BASO % 1.1 % (0.0-2.0); EOS # 0.1 K/uL (0.0-0.7); EOS % 2.3 % (0.0-4.0); LYMPH # 1.5 K/uL (1.0-4.3); LYMPH % 24.3 % (20.0-40.0); MEAN CELL VOLUME 82.5 fL (81.0-99.0); MEAN CORPUSCULAR HEMOGLOBIN 28.6 pg (27.0-31.0); MEAN CORPUSCULAR HGB CONC 34.6 g/dL (33.0-37.0); MEAN PLATELET VOLUME 9.2 fL (7.2-11.7); MONO # 0.4 K/uL (0.0-0.8); MONO % 6.7 % (0.0-10.0); NEUT # 4.1 K/uL (1.8-7.0); NEUT % 65.6 % (50.0-75.0); NRBC % 0.1 % (0.0-2.0); RBC 4.8 Mil/uL (3.80-5.20); RED CELL DISTRIBUTION WIDTH 14.3 % (11.5-14.5); WHITE BLOOD COUNT 6.2 K/uL (4.8-10.8)
[2018-06-02 12:40] LABS: HEMOGLOBIN 13.7 g/dL (11.0-16.0)
[2018-06-02 12:41] LABS: SQUAMOUS EPITHIAL 1 /hpf (0-5); URINE BILIRUBIN NEGATIVE (NEGATIVE); URINE BLOOD NEGATIVE (NEGATIVE); URINE CLARITY Clear (Clear); URINE COLOR Yellow (YELLOW); URINE GLUCOSE (UA) NORMAL (Normal); URINE LEUKOCYTE ESTERASE TRACE Leu/uL (Negative); URINE PROTEIN NEGATIVE (NEGATIVE); URINE UROBILINOGEN NORMAL mg/dL (0.2-1.0)
[2018-06-02 12:54] LABS: ALB/GLOB RATIO 1.3 (1.0-2.1); ALBUMIN 4.3 g/dL (3.5-5.0); ALT/SGPT 41 U/L (9-52); AST/SGOT 34 U/L (14-36); BLOOD UREA NITROGEN 11 mg/dL (7-17); GFR AFRICAN-AMERICAN > 60; GFR NON-AFRICAN AMERICAN > 60; LIPASE 56 U/L (23-300)
[2018-06-02 13:39] VITALS: BP 148/79; PULSE 66
== END 2018-06-02 13:41 | disposition home or self-care (01) ==
LOC: C.ER 10:32
DX: N39.0 Urinary tract infection, site not specified (principal); I10 Essential (primary) hypertension; E11.9 Type 2 diabetes mellitus without complications; Z87.891 Personal history of nicotine dependence
CPT/HCPCS: 80053; 81001; 83690; 85025; 87086; 96361; 96374; 96375; 99283; J1885; J2405; J7030

== ENCOUNTER 2019-02-20 10:15 | Outpatient (CLI) | payer MEDICARE, OTHER | END 2019-02-20 10:16 | disposition home or self-care (01) | LOC: C.MAMMO 10:15 | DX: Z12.31 Encounter for screening mammogram for malignant neoplasm of breast (principal) ==